=== PATIENT | female | born 1970 | race Caucasian/White ===

== ENCOUNTER 2018-03-29 07:27 | Day surgery (SDC) | payer OTHER ==
--- OUTSIDE RECORDS SUMMARY | 2018-03-29 07:30 | XMS REPORT ---
:1970 Author Organization eClinicalWorks Care Team Providers Name Role Phone Rickey Lim Provider Role Unavailable Allergies, Adverse Reactions, Alerts Substance Reaction Event Type N.K.D.A. 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 left elbow due to overuse Problem Seasonal allergies J30.2 Active Problem GERD without esophagitis K21.9 Active Problem Vitamin D deficiency E55.9 Active Problem Elevated blood pressure reading R03.0 Active without diagnosis of hypertension Problem Low back pain, unspecified back M54.5 Active pain laterality, unspecified chronicity, with sciatica presence unspecified Problem Hyperlipidemia, unspecified E78.5 Active hyperlipidemia type Problem Hypothyroidism, unspecified type E03.9 Active Medications Medication Code Code Instructions Start End Status Dosage System Date Date Levothyroxine [facility] 89405526698 75 MCG Orally Active 1 tablet Sodium Once a day on an empty stomach in the morning Flonase [facility] 05810974074 50 MCG/ACT Active 1 spray in Nasally Once a each day nostril Vitamin D3 [facility] 85792911049 34257 UNIT Active 1 capsule Orally Breo Ellipta ND 78633312240 100-25 MCG/INH Active 1 puff Inhalation Once a day Valtrex [facility] 29379438053 500 MG Orally Active 1 tablet Once a day Claritin-D 12 ND 89551309387 5-120 MG Orally Active 1 tablet Hour every 12 hrs as needed Protonix ND 76064735717 40 MG Orally Active 1 tablet Once a day Results No Known Results Summary Purpose eClinicalWorks Submission
--- OUTSIDE RECORDS SUMMARY | 2018-03-29 07:30 | XMS REPORT ---
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 Active left elbow due to overuse Assessment Lateral epicondylitis of left elbow M77.12 Active Assessment Acute pain of left knee M25.562 Active Problem Seasonal allergies J30.2 Active Problem GERD [...] Start End Status Dosage System Date Date Breo Ellipta [facility] 11646244382 100-25 MCG/INH Active 1 puff Inhalation Once a day Flonase ND 60612344009 50 MCG/ACT Active 1 spray in Nasally Once a each day nostril Diclofenac Sodium ND 84740085135 50 MG Orally December 14, Dec 29, Active 1 tablet Twice a day 2017 2017 with food or milk Protonix ND 68104354028 40 MG Orally Active 1 tablet Once a day Valtrex ND 95305749391 500 MG Orally Active 1 tablet Once a day Claritin-D 12 ND 74496842704 5-120 MG Orally Active 1 tablet Hour every 12 hrs as needed Levothyroxine ND 71390149617 75 MCG Orally Active 1 tablet Sodium Once a day on an empty stomach in the morning Fluoxetine HCl ND 76974684761 20 MG Orally Active 1 capsule Once a day in the morning Vitamin D3 ND 98835836501 81800 UNIT Active 1 capsule Orally Results No Known Results Summary Purpose eClinicalWorks Submission
[2018-03-29] MEDS ORDERED: Ringers Lactate 1,000 ML IV ONE (07:49)
[2018-03-29] MEDS ORDERED: LIDOCAINE 1% MPF 5 ML VIAL ONE (09:26)
[2018-03-29] MEDS ORDERED: PROPOFOL 200 MG/20 ML VIAL IV ONE ×2 (09:26→10:23)
[2018-03-29] MEDS ORDERED: MIDAZOLAM HCL 2 MG/2 ML INJ ONE (09:27)
--- NOTE | 2018-03-29 09:50 | ENDO RPT ---
[address], [address] EGD PROCEDURE REPORT EXAM DATE: 03/29/2018 PATIENT NAME: Velvet Yoo MR#: [id number] BIRTHDATE: 1970 ATTENDING: Guru Molina Dr STATUS: outpatient [employer] LEAK TESTER: Tia Fitch and Loretta Connolly RN INDICATIONS: The patient is a 47 yr old Female here for an EGD due to right upper quadrant abdominal pain, mid epigastric abdominal pain, and chronic unexplained diarrhea PROCEDURE PERFORMED: EGD with biopsy MEDICATIONS: Per Anesthesia. TOPICAL ANESTHETIC: none CONSENT: The patient understands the risks and benefits of the procedure and understands that these risks include, but are not limited to: sedation, allergic reaction, infection, perforation and/or bleeding. Alternative means of evaluation and treatment include, among others: physical exam, x-rays, and/or surgical intervention. The patient elects to proceed with this endoscopic procedure. DESCRIPTION OF PROCEDURE: During intra-op preparation period all mechanical medical equipment was checked for proper function. Hand hygiene and appropriate measures for infection prevention was taken. Procedure, possible complications, and alternatives including but not limited to the possibility of bleeding, perforation, tear, infection, sepsis, need for surgery, need for blood transfusion, and anesthesia related complications were explained to the patient. After the risks, benefits and alternatives of the procedure were thoroughly explained, Informed consent was verified, confirmed and timeout was successfully executed by the treatment team. The patient was placed in the left lateral position. The patient was anesthetized with topical anesthesia. Through the anesthetized oropharyngeal area, the scope was passed without any difficulty. The Pentax EG-[id number] ([id number]) endoscope was introduced through the mouth and advanced to the third portion of the duodenum. Retroflexed views revealed a small hiatal hernia. The gastroscope was then slowly withdrawn and removed. LA Class A esophagitis was found in the lower esophagus. A small hiatal hernia was found Duodenitis was found in the bulb of the duodenum. Multiple gastric biopsies were obtained and sent to pathology. Small bowel biopsies obtained with history of chronic unexplained diarrhea. ADVERSE EVENTS: There were no complications. IMPRESSIONS: 1. LA Class A esophagitis in the lower esophagus 2. A small hiatal hernia 3. Duodenitis in the bulb of the duodenum, s/p gastric biopsies 4. Small bowel biopsies obtained with history of chronic unexplained diarrhea RECOMMENDATIONS: 1. await biopsy results 2. acid suppression therapy REPEAT EXAM: Guru Molina Dr eSigned: Guru Molina Dr 03/29/2018 9:50 AM cc: Rickey Lim M.D. CPT CODES: ICD9 CODES: PATIENT NAME: Velvet Yoo MR#: [id number]
--- NOTE | 2018-03-29 10:24 | ENDO RPT ---
[address], [address] COLONOSCOPY PROCEDURE REPORT EXAM DATE: 03/29/2018 PATIENT NAME: Velvet Yoo MR #: [id number] BIRTHDATE: 1970 ATTENDING: Guru Molina Dr STATUS: outpatient AUTOMAT WATCHER: Tia Fitch and Loretta Connolly RN INDICATIONS: The patient is a 47 yr old Female here for a colonoscopy due to RLQ/LLQ abdominal pain, change in bowel habits, unexplained diarrhea, diverticulitis, abnormal CT of abdomen, and family history of colon cancer - mother PROCEDURE PERFORMED: Colonoscopy with biopsy and Colonoscopy with biopsy - cold polypectomy MEDICATIONS: Per Anesthesia. ESTIMATED BLOOD LOSS: None CONSENT: The patient understands the risks and benefits of the procedure and understands that these risks include, but are not limited to: sedation, allergic reaction, infection, perforation and/or bleeding. Alternative means of evaluation and treatment include, among others: physical exam, x-rays, and/or surgical intervention. The patient elects to proceed with this endoscopic procedure. DESCRIPTION OF PROCEDURE: During intra-op preparation period all mechanical medical equipment was checked for proper function. Hand hygiene and appropriate measures for infection prevention was taken. Procedure, possible complications, alternatives including, but not limited to possibility of bleeding, perforation, tear, infection, sepsis, need for surgery, need for blood transfusion, were explained to the patient. After the risks, benefits and alternatives of the procedure were thoroughly explained, Informed consent was verified, confirmed and timeout was successfully executed by the treatment team. The patient was placed in the left lateral position. A digital rectal exam was performed and revealed no abnormalities of the rectum. After appropriate level of anesthesia, the scope was passed. The EG-2990i ([id number]) and EC-3890Li ([id number]) endoscope was introduced through the anus and advanced to the terminal ileum which was intubated for a short distance. The quality of the prep was good. The instrument was then slowly withdrawn as the colon was fully examined. Scope withdrawal time was 9 minutes. COLON FINDINGS: A sessile polyp measuring 3 mm in size was found in the ascending colon. A polypectomy was performed with cold forceps. Mild diverticulosis was noted in the sigmoid colon. Small internal hemorrhoids were found. Retroflexed views revealed small hemorrhoids. Random biopsies of the terminal ileum / right colon / left colon / rectum obtained with history of chronic unexploained diarrhea. The scope was then completely withdrawn from the patient and the procedure terminated. ADVERSE EVENTS: There were no complications. IMPRESSIONS: 1. 3 mm sessile polyp in the ascending colon; polypectomy was performed with cold forceps 2. Mild diverticulosis in the sigmoid colon 3. Small internal hemorrhoids 4. Random biopsies of the terminal ileum / right colon / left colon / rectum obtained with history of chronic unexploained diarrhea 5. Intubation to terminal ileum 6. Family history of colon cancer - mother RECOMMENDATIONS: 1. await biopsy results 2. avoid NSAIDS for 2 weeks RECALL: Return in 3 year(s) for Colonoscopy. Guru Molina Dr eSigned: Guru Molina Dr 03/29/2018 10:23 AM cc: Rickey Lim CPT CODES: ICD9 CODES: 211.3 Benign neoplasm of colon PATIENT NAME: Velvet Yoo MR#: [id number]
== END 2018-03-29 10:51 | disposition home or self-care (01) ==
LOC: OR 07:27 → ENDO 10:51
PROVIDERS: ATTEND Internal Medicine Gastroenterology
PROC: 0DBF8ZX Excision of Right Large Intestine, Via Natural or Artificial Opening Endoscopic, Diagnostic (ICD-10-PCS; 2018-03-29)
PROC: 0DBG8ZX Excision of Left Large Intestine, Via Natural or Artificial Opening Endoscopic, Diagnostic (ICD-10-PCS; 2018-03-29)
PROC: 0DB68ZX Excision of Stomach, Via Natural or Artificial Opening Endoscopic, Diagnostic (ICD-10-PCS; 2018-03-29)
PROC: 0DB88ZX Excision of Small Intestine, Via Natural or Artificial Opening Endoscopic, Diagnostic (ICD-10-PCS; 2018-03-29)
PROC: 0DBB8ZX Excision of Ileum, Via Natural or Artificial Opening Endoscopic, Diagnostic (ICD-10-PCS; principal; 2018-03-29 09:15)
PROC: 0DBP8ZX Excision of Rectum, Via Natural or Artificial Opening Endoscopic, Diagnostic (ICD-10-PCS; 2018-03-29 09:15)
DX: K29.50 Unspecified chronic gastritis without bleeding (principal); K63.5 Polyp of colon; K57.30 Diverticulosis of large intestine without perforation or abscess without bleeding; K29.80 Duodenitis without bleeding; K20.8 Other esophagitis; K44.9 Diaphragmatic hernia without obstruction or gangrene; K64.8 Other hemorrhoids; E03.9 Hypothyroidism, unspecified; M81.0 Age-related osteoporosis without current pathological fracture; Z87.891 Personal history of nicotine dependence; Z80.0 Family history of malignant neoplasm of digestive organs; Z80.3 Family history of malignant neoplasm of breast; Z80.1 Family history of malignant neoplasm of trachea, bronchus and lung
CPT/HCPCS: 81025; 88305; 88312; J2250; J2704

== ENCOUNTER 2021-02-26 08:16 | Emergency (ER) | payer OTHER ==
[2021-02-26 09:05] LABS: Absolute Lymphocytes (CBC) 3.6 K/uL (0.7-4.9); Basophils % 0.9 % (0-1.3); Hematocrit 38.2 % (36.0-45.0); Lymphocytes % 46.3 % (15.3-44.8); MPV 7.8 fL (7.6-11.3); RBC Red Blood Cell Count 4.31 M/uL (3.86-4.86)
[2021-02-26 09:06] LABS: Protime INR 0.97
[2021-02-26 09:18] LABS: ALT/SGPT 41 U/L (12-78); AST/SGOT 18 U/L (15-37); Albumin 3.9 g/dL (3.4-5.0); Alkaline Phosphatase 90 U/L (45-117); BUN Blood Urea Nitrogen 14 mg/dL (7-18); Bicarbonate 28 mmol/L (21-32); Bilirubin Direct 0.1 mg/dL (0-0.2); Bilirubin Total 0.5 mg/dL (0.2-1.0); Glucose Level 106 mg/dL (74-106); Magnesium 2.4 mg/dL (1.8-2.4); NT PRO-BNP 23 pg/mL (<125); Potassium 3.8 mmol/L (3.5-5.1); Protein, Total 7.8 g/dL (6.4-8.2); Sodium Level 140 mmol/L (136-145); Troponin (Emerg Dept Use Only) < 0.02 ng/mL (0.0-0.045)
--- NOTE | 2021-02-26 09:31 | RAD REPORT ---
EXAM DESCRIPTION: RAD - Chest Single View - 02/26/2021 9:24 am CLINICAL HISTORY: PALPITATIONS COMPARISON: CHEST SINGLE VIEW dated 10/29/2014; CHEST PA AND LAT 2 VIEW dated 10/23/2014; CHEST SINGLE VIEW dated 09/18/2010 FINDINGS: Lines: None. Lungs: No evidence of edema or pneumonia. Scattered calcified pulmonary nodules. Pleural: No significant pleural effusions or pneumothorax. Cardiac: The heart size is within normal limits. Bones: No acute fractures. Other: IMPRESSION: No acute cardiopulmonary disease.
[2021-02-26 09:36] LABS: Thyroid Stimulating Hormone 6.03 uIU/mL (0.360-3.740)
--- NOTE | 2021-02-26 10:12 | EDPHYS ---
Physician Documentation [facility] Name: Velvet Yoo Age: 50 yrs Sex: Female : 1970 Arrival Date: 02/26/2021 Time: 08:21 Bed 6 Private MD: ED Physician Celso Wheeler HPI: 02/26 08:42 This 50 yrs old Female presents to ER via Ambulatory with complaints of jr8 Palpitations. 08:42 The patient presents with a history of heart racing. Context: The symptoms occur at jr8 rest. Onset: The symptoms/episode began/occurred gradually. Duration: The patient or guardian reports multiple episodes. Modifying factors: The symptoms are aggravated by anxiety, strenuous activity, stress. Associated signs and symptoms: Pertinent positives: lightheadedness, SOB. Severity of symptoms: At their worst the symptoms were moderate in the emergency department the symptoms are unchanged. The patient has not experienced similar symptoms in the past. The patient has been recently seen by a physician:. Patient stated that she has been recently monitoring her blood pressure has been mildly elevated over the last couple months. Has seen her primary care physician for this and started her on a diet modification along with phentermine. Patient stated that over the last day or 2 she has had worsening of symptoms.. Historical: - Allergies: 08:32 No Known Allergies; aa5 - Home Meds: 08:32 Omeprazole Oral [Active]; Fluoxetine Oral [Active]; aa5 - PMHx: 08:32 GERD; aa5 - Immunization history:: Client reports receiving the 2nd dose of the Covid vaccine. - Social history:: Smoking status: Patient denies any tobacco usage or history of. ROS: 08:42 Eyes: Negative for injury, pain, redness, and discharge, ENT: Negative for injury, jr8 pain, and discharge, Neck: Negative for injury, pain, and swelling, Abdomen/GI: Negative for abdominal pain, nausea, vomiting, diarrhea, and constipation, Back: Negative for injury and pain, MS/Extremity: Negative for injury and deformity, Skin: Negative for injury, rash, and discoloration. 08:42 Cardiovascular: Positive for chest pain, palpitations, Negative for edema, orthopnea, paroxysmal nocturnal dyspnea. 08:42 Respiratory: Positive for shortness of breath. 08:42 Neuro: Positive for dizziness. Exam: 08:42 Eyes: Pupils equal round and reactive to light, extra-ocular motions intact. Lids and jr8 lashes normal. Conjunctiva and sclera are non-icteric and not injected. Cornea within normal limits. Periorbital areas with no swelling, redness, or edema. ENT: Nares patent. No nasal discharge, no septal abnormalities noted. Tympanic membranes are normal and external auditory canals are clear. Oropharynx with no redness, swelling, or masses, exudates, or evidence of obstruction, uvula midline. Mucous membranes moist. Neck: Trachea midline, no thyromegaly or masses palpated, and no cervical lymphadenopathy. Supple, full range of motion without nuchal rigidity, or vertebral point tenderness. No Meningismus. Cardiovascular: Regular rate and rhythm with a normal S1 and S2. No gallops, murmurs, or rubs. Normal PMI, no JVD. No pulse deficits. Respiratory: Lungs have equal breath sounds bilaterally, clear to auscultation and percussion. No rales, rhonchi or wheezes noted. No increased work of breathing, no retractions or nasal flaring. Abdomen/GI: Soft, non-tender, with normal bowel sounds. No distension or tympany. No guarding or rebound. No evidence of tenderness throughout. Back: No spinal tenderness. No costovertebral tenderness. Full range of motion. Skin: Warm, dry with normal turgor. Normal color with no rashes, no lesions, and no evidence of cellulitis. MS/ Extremity: Pulses equal, no cyanosis. Neurovascular intact. Full, normal range of motion. Neuro: Awake and alert, GCS 15, oriented to person, place, time, and situation. Cranial nerves II-XII grossly intact. Motor strength 5/5 in all extremities. Sensory grossly intact. Vital Signs: 08:25 BP 184 / 111; Pulse 78; Resp 20 S; Temp 97.4(O); Pulse Ox 99% on R/A; Weight 95.25 kg aa5 (R); Height 5 ft. 6 in. (167.64 cm) (R); Pain 0/10; 08:45 BP 160 / 101; Pulse 72; Resp 18 S; Pulse Ox 98% on R/A; aa5 09:30 BP 151 / 91; Pulse 75; Resp 16 S; Pulse Ox 99% on R/A; aa5 08:25 Body Mass Index 33.89 (95.25 kg, 167.64 cm) 5 MDM: 08:23 Patient medically screened. jr8 10:07 Data reviewed: vital signs, nurses notes, lab test result(s), EKG, radiologic studies, jr8 plain films, and as a result, I will discharge patient. Data interpreted: Pulse oximetry: on room air is 99 %. Interpretation: normal. Counseling: I had a detailed discussion with the patient and/or guardian regarding: the historical points, exam findings, and any diagnostic results supporting the discharge/admit diagnosis, lab results, radiology results, the need for outpatient follow up, a service station manager, to return to the emergency department if symptoms worsen or persist or if there are any questions or concerns that arise at home. 10:52 ED course: Detailed discussion with patient about her thyroid studies. Would recommend jr8 redraw in a few weeks and if the TSH is still elevated that she should be started on low-dose Synthroid. Discussed her blood pressure management at this point and that would be a good idea to start her on something low dose. Because she is having symptomatic PVCs recommended a beta-yolanda at this time. Patient will also follow-up with Dr. Arcos in the next couple days. Patient knows to come back if she were to worsen any point time. Otherwise labs, EKG, chest x-ray were unrevealing.. 02/26 08:34 Order name: Basic Metabolic Panel; Complete Time: 09:25 02/26 08:34 Order name: CBC with Diff; Complete Time: 09:25 02/26 08:34 Order name: LFT's; Complete Time: 09:25 02/26 08:34 Order name: Magnesium; Complete Time: 09:25 02/26 08:34 Order name: NT PRO-BNP; Complete Time: 09:25 02/26 08:34 Order name: PT-INR; Complete Time: 09:25 02/26 08:34 Order name: Troponin (emerg Dept Use Only); Complete Time: 09:25 aa02/26 08:34 Order name: XRAY Chest (1 view); Complete Time: 09:37 02/26 08:34 Order name: EKG; Complete Time: 08:35 aa02/26 08:34 Order name: Cardiac monitoring; Complete Time: 08:34 aa5 02/26 08:34 Order name: EKG - Nurse/Tech; Complete Time: 08:34 02/26 08:34 Order name: IV Saline Lock; Complete Time: 09:03 02/26 08:41 Order name: TSH; Complete Time: 09:37 8 02/26 08:41 Order name: T4 Free; Complete Time: 09:37 8 02/26 08:34 Order name: Labs collected and sent; Complete Time: 09:03 02/26 08:34 Order name: O2 Per Protocol; Complete Time: 08:34 02/26 08:34 Order name: O2 Sat Monitoring; Complete Time: 08:34 aa Administered Medications: No medications were administered Disposition: 11:05 Co-signature as Attending Physician, Celso Wheeler MD I agree with the assessment and rn plan of care. Attestation: The patient's history, exam findings, diagnostics, and a summary of any interventions or procedures was reviewed in detail with Andrews BOWER. Disposition Summary: 02/26/21 10:11 Discharge Ordered Location: Home [facility] Problem: new jr8 Symptoms: have improved jr8 Condition: Stable jr8 Diagnosis - Essential (primary) hypertension jr8 - Ventricular premature depolarization jr8 Followup: jr8 - With: Nathan Arcos MD - When: 2 - 3 days - Reason: Recheck today's complaints, Continuance of care, Re-evaluation by your physician Discharge Instructions: - Discharge Summary Sheet jr8 - Hypertension, Adult jr8 - Premature Ventricular Contraction jr8 - DASH Eating Plan jr8 Forms: - Medication Reconciliation Form jr8 - Thank You Letter jr8 - Antibiotic Education jr8 - Prescription Opioid Use jr8 Prescriptions: - Metoprolol Tartrate 25 mg Oral Tablet - take 1 tablet by ORAL route once daily with a meal; 30 tablet; Refills: 0, jr8 Product Selection Permitted Signatures: Dispatcher [employer] Celso Paris MD MD rn Calderon, Audri RN RN aa5 Andrews Ho PA PA jr8
--- NOTE | 2021-02-26 10:12 | ER ---
Nurse's Notes [facility] Name: Velvet Yoo Age: 50 yrs Sex: Female : 1970 Arrival Date: 02/26/2021 Time: 08:21 Bed 6 Private MD: Diagnosis: Essential (primary) hypertension;Ventricular premature depolarization Presentation: 02/26 08:25 Chief complaint: Patient states: "my heart has been racing for about 36 hours and I've aa5 been seeing Dr. Zuniga keeping a blood pressure log". Pt states "I came in today because my heart and my chest are pounding and it woke me up". Pt also reports slight dizziness. 08:25 Coronavirus screen: At this time, the client does not indicate any symptoms associated aa5 with coronavirus-19. Ebola Screen: Patient negative for fever greater than or equal to 101.5 degrees Fahrenheit, and additional compatible Ebola Virus Disease symptoms. Initial Sepsis Screen: Does the patient meet any 2 criteria? No. Patient's initial sepsis screen is negative. Does the patient have a suspected source of infection? No. Patient's initial sepsis screen is negative. Risk Assessment: Do you want to hurt yourself or someone else? Patient reports no desire to harm self or others. Onset of symptoms was January 2021. 08:25 Method Of Arrival: Ambulatory aa5 08:25 Acuity: ARGELIA 2 aa5 Historical: - Allergies: 08:32 No Known Allergies; aa5 - Home Meds: 08:32 Omeprazole Oral [Active]; Fluoxetine Oral [Active]; aa5 - PMHx: 08:32 GERD; aa5 - Immunization history:: Client reports receiving the 2nd dose of the Covid vaccine. - Social history:: Smoking status: Patient denies any tobacco usage or history of. Screenin:45 Abuse screen: Denies threats or abuse. Nutritional screening: No deficits noted. aa5 Tuberculosis screening: No symptoms or risk factors identified. Fall Risk None identified. Assessment: 08:25 General: Appears uncomfortable, Behavior is cooperative, anxious. Pain: Denies pain. aa5 Neuro: Level of Consciousness is awake, alert, obeys commands, Oriented to person, place, time, situation, Reports slight dizziness . Cardiovascular: Reports palpitations, Heart tones S1 S2 present Rhythm is sinus rhythm. Respiratory: Airway is patent Respiratory effort is even, unlabored, Respiratory pattern is regular, symmetrical. GI: No signs and/or symptoms were reported involving the gastrointestinal system. Abdomen is round non-distended. : No signs and/or symptoms were reported regarding the genitourinary system. EENT: No signs and/or symptoms were reported regarding the EENT system. Derm: Skin is pink, warm \\T\\ dry. Musculoskeletal: Range of motion: intact in all extremities. 08:46 Reassessment: Patient is alert, oriented x 3, equal unlabored respirations, skin aa5 warm/dry/pink. Pt assisted to restroom via wheelchair. Pt placed back in bed. Call montilla within reach. . 09:35 Reassessment: Patient is alert, oriented x 3, equal unlabored respirations, skin aa5 warm/dry/pink. Awaiting complete lab results. . 09:35 General: Appears comfortable, Behavior is calm, cooperative. aa5 10:17 Reassessment: Patient is alert, oriented x 3, equal unlabored respirations, skin aa5 warm/dry/pink. 10:17 General: Appears comfortable, Behavior is calm, cooperative. aa5 Vital Signs: 08:25 BP 184 / 111; Pulse 78; Resp 20 S; Temp 97.4(O); Pulse Ox 99% on R/A; Weight 95.25 kg aa5 (R); Height 5 ft. 6 in. (167.64 cm) (R); Pain 0/10; 08:45 BP 160 / 101; Pulse 72; Resp 18 S; Pulse Ox 98% on R/A; aa5 09:30 BP 151 / 91; Pulse 75; Resp 16 S; Pulse Ox 99% on R/A; aa5 08:25 Body Mass Index 33.89 (95.25 kg, 167.64 cm) aa5 ED Course: 08:21 Patient arrived in ED. am2 08:23 Andrews Ho PA is PHCP. jr8 08:23 Celso Wheeler MD is Attending Physician. jr8 08:25 Siena Katz, AJ is Primary Nurse. aa5 08:25 Arm band placed on Patient placed in an exam room, on a stretcher. aa5 08:25 Patient has correct armband on for positive identification. Bed in low position. Call aa5 light in reach. Side rails up X 1. media monitor on. Pulse ox on. NIBP on. 08:32 Triage completed. aa5 08:43 Initial lab(s) drawn, by me, sent to lab. Inserted saline lock: 20 gauge in left aa5 antecubital area, using aseptic technique. Blood collected. 09:24 XRAY Chest (1 view) In Process Unspecified. EDMA 10:10 Nathan Arcos MD is Referral Physician. jr 10:17 No provider procedures requiring assistance completed. IV discontinued, intact, aa5 bleeding controlled, No redness/swelling at site. Pressure dressing applied. Administered Medications: No medications were administered Outcome: 10:11 Discharge ordered by . jr8 10:18 Discharged to home ambulatory. aa5 10:18 Condition: stable 10:18 Discharge instructions given to patient, Instructed on discharge instructions, follow up and referral plans. medication usage, Demonstrated understanding of instructions, follow-up care, medications, Prescriptions given X 1. 10:20 Patient left the ED. aa5 Signatures: Dispatcher [employer] [facility] Siena Katz RN RN aa5 Andrews Ho PA PA jr8 Zulay Day am2 Corrections: (The following items were deleted from the chart) 10:40 10:40 Patient left the ED. aa5 [email or web address]
[2021-02-26 10:46] VITALS: TEMP 97.4
[2021-02-26 10:49] VITALS: BP 151/91; O2SAT 99
--- NOTE | 2021-02-27 11:15 | EKG ---
Test Date: 2021-02-26 Test Time: 08:29:45 Tool Design Engineer: HOMA MEASUREMENT RESULTS: Intervals: Rate: 77 AL: 138 QRSD: 86 QT: 368 QTc: 416 [place]: P: 8 AL: 138 QRS: 5 T: 38 INTERPRETIVE STATEMENTS: Normal sinus rhythm Normal ECG Compared to ECG 10/29/2014 19:00:22 No significant changes Electronically Signed On 02-27-21 11:13:17 CDT by Nathan Arcos
== END 2021-02-26 10:40 | disposition home or self-care (01) ==
LOC: ER 08:16
DX: I10 Essential (primary) hypertension (principal); I49.3 Ventricular premature depolarization; K21.9 Gastro-esophageal reflux disease without esophagitis
CPT/HCPCS: 36415; 71045; 80048; 80076; 83735; 83880; 84439; 84443; 84484; 85025; 85610; 93005; 99284

== ENCOUNTER 2023-11-08 14:01 | Emergency (ER) | payer BC ==
--- OUTSIDE RECORDS SUMMARY | 2023-11-08 14:05 | XMS REPORT | Continuity of Care Document ---
Author Name Unknown Address [address] [facility] [place] [address] [facility] thconnect Address [address] [facility] [address] [place] [address] Care Team Providers Care Child Custody Evaluator Name Role Phone [email or web address] Attending Clinician Unavaila ble Guru Molina Admitting Clinician Unavailable [email or web address]_S Admitting Clinician Unavaila ble Payers Payer Name Policy Type Policy Number Effective Date Expirati on Date Source [facility] 6 [id number] [facility]: (PPO) [id number] 2022 00:00:00 [employer] [facility] 6 [id number] [facility] AETNA C1 [id number] [facility] Problems Condition Name Condition Details Condition Category Status Onset Date Resolution Date Last Treatment Date Treating Clinician Comments Source Herpes simplex Herpes Simplex Problem Active 8 00:00: 00 [facility] Hypothyroi dism Hypothyroi dism Problem Active 8 00:00: 00 [facility] Hyperlipid emia Hyperlipid emia Problem Active 01-19 00:00: 00 [facility] Anxiety Anxiety Problem Active 01-19 00:00: 00 [facility] Essential hypertensi on Essential Hypertensi on Problem Active 01-19 00:00: 00 [facility] Gastroesop hageal reflux disease Gastroesop hageal Reflux Disease Problem Active 01-19 00:00: 00 [facility] Postmenopa usal bleeding Postmenopa usal Bleeding Problem Active 09-16 00:00: 00 [facility] Body mass index 30+ - obesity Body Mass Index 30+ - Obesity Problem Active 408 00:00: 00 [facility] Screening for malignant neoplasm of colon Screening for Malignant Neoplasm of Colon Problem Active 08 00:00: 00 [facility] Fibrocysti c change of right breast Fibrocysti c Change of Right Breast Problem Active 2020-05 2-28 00:00: 00 [facility] Lump in upper inner quadrant of right breast Lump in Upper Inner Quadrant of Right Breast Problem Active 2020-05 2-20 00:00: 00 [facility] Pure hyperchole sterolemia Pure Hyperchole sterolemia Problem Active 2020-05 1-03 00:00: 00 [facility] Severe obesity Severe Obesity Problem Active 2020-05 1-03 00:00: 00 [facility] Inconclusi ve mammograph y finding Inconclusi ve Mammograph y Finding Problem Active 816 00:00: 00 [facility] Abnormal findings on diagnostic imaging of breast Abnormal Findings on Diagnostic Imaging of Breast Problem Active 16 00:00: 00 [facility] Moderate recurrent major depression Moderate Recurrent Major Depression Problem Active 4-07 00:00: 00 [facility] Mixed urinary incontinen ce Mixed Urinary Incontinen ce Problem Active 4- 00:00: 00 [facility] Screening mammograph y Screening Mammograph y Problem Active 4 00:00: 00 [facility] Herpetic vulvovagin itis Herpetic Vulvovagin itis Problem Active 3 00:00: 00 [facility] Chlamydial infection of lower genitourin [place] tract Chlamydial Infection of Lower Genitourin [place] Tract Problem Active 3 00:00: 00 [facility] Venereal disease screening Venereal Disease Screening Problem Active 3 00:00: 00 [facility] Irregular periods Irregular Periods Problem Active 309 00:00: 00 [facility] Mild major depression , single episode Mild Major Depression , Single Episode Problem Active 0 806 00:00: 00 [facility] Removal of intrauteri ne device Removal of Intrauteri ne Device Problem Active 0 806 00:00: 00 [facility] Abscess of vulva Abscess of Vulva Problem Active 0 12-15 00:00: 00 [facility] Menopause present Menopause Present Problem Active 0 12-15 00:00: 00 [facility] Contracept ion care education Contracept ion Care Education Problem Active 302 00:00: 00 [facility] Candidiasi s of vagina Candidiasi s of Vagina Problem Active 0 02-10 00:00: 00 [facility] Major depression , single episode Major Depression , Single Episode Problem Active 0 02-10 00:00: 00 [facility] Alcohol abuse Alcohol Abuse Problem Active 02-10 00:00: 00 [facility] Acute vaginitis Acute Vaginitis Problem Active 02-10 00:00: 00 [facility] Pruritus of vulva Pruritus of Vulva Problem Active 0 02-10 00:00: 00 [facility] Counseling Counseling Problem Active 02-10 00:00: 00 [facility] Gynecologi c examinatio n Gynecologi c Examinatio n Problem Active 0 07-22 00:00: 00 [facility] Herpesviru s infection Herpesviru s Infection Problem Active 07-22 00:00: 00 [facility] Postcoital bleeding Postcoital Bleeding Problem Active 07-22 00:00: 00 [facility] Gynecologi david examinatio n abnormal Gynecologi david Examinatio n Abnormal Problem Active 07-22 00:00: 00 [facility] [id number] Primary osteoarthr itis of left knee Problem [facility] [id number] Elevated blood pressure reading without diagnosis of hypertensi on Problem [facility] [id number] Osteopenia of multiple sites Problem [facility] [id number] GERD without esophagiti s Problem [facility] [id number] Seasonal allergies Problem [facility] [id number] Urge incontinen ce of urine Problem [facility] [id number] Vitamin D deficiency Problem [facility] [id number] Right carpal tunnel syndrome Problem [facility] [id number] Neuropathy of right radial nerve Problem [facility] [id number] SI joint arthritis Problem [facility] [id number] Pain, joint, knee, left Problem [facility] [id number] Right hand pain Problem [facility] [id number] 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 Problem [facility] [id number] Stress incontinen ce Problem [facility] [id number] Low back pain, unspecifie d back pain laterality , unspecifie d chronicity , with sciatica presence unspecifie d Problem [facility] [id number] Other chronic pain Problem [facility] [id number] Trochanter ic bursitis, left hip Problem [facility] [id number] Pain of left hip joint Problem [facility] [id number] Arthritis of knee, left Problem [facility] Social History Social Habit Start Date Stop Date Quantity Comments Source History of Tobacco Use [facility] Sex Assigned At [facility] Smoking Status Start Date Stop Date Source Never Smoker [facility] Former Smoker 2023-10-24 00:00:00 2023-10-24 00:00:00 [facility] Medications Ordered Medication Name Filled Medication Name Start Date Stop Date Current Medication? Ordering Clinician Indication Dosage Frequency Signature (SIG) Comments Components Source BUPivacaine HCl BUPivacaine HCl 10-09 00:00: [address] [facility] Hyalgan Hyalgan 10-04 00:00: [address] [facility] Bupivicaine [place] Bupivicaine [place] 02-22 00:00: [address] [facility] Kenalog (Triamcinol one) Kenalog (Triamcinol one) 11-09 00:00: [address] [facility] Omeprazole 40 MG Omeprazole 40 MG No QD Omeprazole 40 MG valACYclovi r HCl 500 MG valACYclovi r HCl 500 MG No 1{table t} QD valACYclov ir HCl 500 MG Famotidine 20 MG Famotidine 20 MG No 1{table t_at_be dtime_a s_neede d} QD Famotidine 20 MG [place] Thyroid 90 MG [place] Thyroid 90 MG No 1{table t_on_an _empty_ stomach } QD [place] Thyroid 90 MG Probiotic 250 MG Probiotic 250 MG No Probiotic 250 MG Spironolact one 100 MG Spironolact one 100 MG No 1{table t} QD Spironolac tone 100 MG [place] Thyroid 90 mg tablet [place] Thyroid 90 mg tablet No [place] Thyroid 90 mg tablet [facility] famotidine 20 mg tablet famotidine 20 mg tablet No famotidine 20 mg tablet [facility] omeprazole 40 mg capsule,del ayed release omeprazole 40 mg capsule,del ayed release No omeprazole 40 mg capsule,de layed release [facility] progesteron e micronized 200 mg capsule Take 1 capsule every day by oral route for 90 days. progesteron e micronized 200 mg capsule Take 1 capsule every day by oral route for 90 days. No 1capsul e(s) Q1D progestero ne micronized 200 mg capsule Take 1 capsule every day by oral route for 90 days. [facility] spironolact one 50 mg tablet TAKE ONE (1) OR TWO (2) TABLET(S) BY MOUTH EVERY NIGHT. spironolact one 50 mg tablet TAKE ONE (1) OR TWO (2) TABLET(S) BY MOUTH EVERY NIGHT. No spironolac tone 50 mg tablet TAKE ONE (1) OR TWO (2) TABLET(S) BY MOUTH EVERY NIGHT. [facility] tirzepatide 15mg/b6 4mg/0.5ml mdv (6ml 180mg) INJECT 50 UNITS (15 MG) subcutaneou s ONCE WEEKLY FOR 90 DAYS tirzepatide 15mg/b6 4mg/0.5ml mdv (6ml 180mg) INJECT 50 UNITS (15 MG) subcutaneou s ONCE WEEKLY FOR 90 DAYS No tirzepatid e 15mg/b6 4mg/0.5ml mdv (6ml 180mg) INJECT 50 UNITS (15 MG) subcutaneo us ONCE WEEKLY FOR 90 DAYS [facility] valacyclovi r 500 mg tablet TAKE 1 TABLET BY MOUTH ONCE DAILY valacyclovi r 500 mg tablet TAKE 1 TABLET BY MOUTH ONCE DAILY No valacyclov ir 500 mg tablet TAKE 1 TABLET BY MOUTH ONCE DAILY [facility] Vital Signs Vital Name Observation Time Observation Value Comments S ource height 2023-10-24 15:30:00 66 [in_i] Commo n [facility] weight 2023-10-24 15:30:00 190 [lb_av] Comm on [facility] temperature 2023-10-24 15:30:00 98.4 [degF] Com mon [facility] bmi 2023-10-24 15:30:00 30.66 kg/m2 Comm on [facility] blood pressure systolic 2023-10-24 15:30:00 136 mm[Hg] Common [facility] blood pressure diastolic 2023-10-24 15:30:00 86 mm[Hg] Common [facility] height 2023-10-17 15:30:00 66 [in_i] Commo n [facility] weight 2023-10-17 15:30:00 190 [lb_av] Comm on [facility] temperature 2023-10-17 15:30:00 98.1 [degF] Com [facility] bmi 2023-10-17 15:30:00 30.66 kg/m2 Comm on [facility] blood pressure systolic 2023-10-17 15:30:00 126 mm[Hg] [facility] blood pressure diastolic 2023-10-17 15:30:00 76 mm[Hg] [facility] height 2023-10-10 15:30:00 66 [in_i] Commo n [facility] weight 2023-10-10 15:30:00 194 [lb_av] Comm on [facility] temperature 2023-10-10 15:30:00 98.3 [degF] Com mon [facility] bmi 2023-10-10 15:30:00 31.31 kg/m2 Comm on [facility] blood pressure systolic 2023-10-10 15:30:00 126 mm[Hg] Common [facility] blood pressure diastolic 2023-10-10 15:30:00 74 mm[Hg] [facility] BP Diastolic 2023-10-03 00:00:00 89 mm[Hg] [facility] Height 2023-10-03 00:00:00 66 [in_i] [facility] Body Weight 2023-10-03 00:00:00 192.8 [lb_av] [facility] BP Systolic 2023-10-03 00:00:00 143 mm[Hg] [facility] BMI (Body Mass Index) 2023-10-03 00:00:00 31.1 kg[facility] 2023-08-08 09:00:00 66 [in_i] Commo n [facility] weight 2023-08-08 09:00:00 203 [lb_av] Comm on [facility] temperature 2023-08-08 09:00:00 98.2 [degF] Com mon [facility] bmi 2023-08-08 09:00:00 32.76 kg/m2 Comm on [facility] blood pressure systolic 2023-08-08 09:00:00 124 mm[Hg] [facility] blood pressure diastolic 2023-08-08 09:00:00 78 mm[Hg] [facility] height 2023-04-25 10:00:00 66 [in_i] Commo n [facility] weight 2023-04-25 10:00:00 203 [lb_av] Comm on [facility] bmi 2023-04-25 10:00:00 32.76 kg/m2 Comm on [facility] blood pressure systolic 2023-04-25 10:00:00 122 mm[Hg] [facility] blood pressure diastolic 2023-04-25 10:00:00 74 mm[Hg] [facility] height 2023-04-06 08:45:00 66 [in_i] Commo n [facility] weight 2023-04-06 08:45:00 203 [lb_av] Comm on [facility] temperature 2023-04-06 08:45:00 98.3 [degF] Com [facility] bmi 2023-04-06 08:45:00 32.76 kg/m2 Comm on [facility] blood pressure systolic 2023-04-06 08:45:00 122 mm[Hg] [facility] blood pressure diastolic 2023-04-06 08:45:00 74 mm[Hg] [facility] height 2022-12-20 08:45:00 66 [in_i] Commo n [facility] weight 2022-12-20 08:45:00 207 [lb_av] Comm on [facility] temperature 2022-12-20 08:45:00 98.4 [degF] Com [facility] bmi 2022-12-20 08:45:00 33.41 kg/m2 Comm on [facility] blood pressure systolic 2022-12-20 08:45:00 124 mm[Hg] [facility] blood pressure diastolic 2022-12-20 08:45:00 71 mm[Hg] [facility] height 2022-12-01 08:15:00 66 [in_i] Commo n [facility] weight 2022-12-01 08:15:00 207 [lb_av] Comm on [facility] temperature 2022-12-01 08:15:00 97.8 [degF] Com [facility] bmi 2022-12-01 08:15:00 33.41 kg/m2 Comm on [facility] blood pressure systolic 2022-12-01 08:15:00 126 mm[Hg] [facility] blood pressure diastolic 2022-12-01 08:15:00 80 mm[Hg] [facility] height 2022-11-21 08:00:00 66 [in_i] Commo n [facility] weight 2022-11-21 08:00:00 207 [lb_av] Comm on [facility] temperature 2022-11-21 08:00:00 98.0 [degF] Com [facility] bmi 2022-11-21 08:00:00 33.41 kg/m2 Comm on [facility] blood pressure systolic 2022-11-21 08:00:00 124 mm[Hg] [facility] blood pressure diastolic 2022-11-21 08:00:00 78 mm[Hg] [facility] height 2022-10-03 15:00:00 66 [in_i] Commo n [facility] weight 2022-10-03 15:00:00 207 [lb_av] Comm on [facility] temperature 2022-10-03 15:00:00 98.2 [degF] Com [facility] bmi 2022-10-03 15:00:00 33.41 kg/m2 Comm on [facility] blood pressure systolic 2022-10-03 15:00:00 136 mm[Hg] [facility] blood pressure diastolic 2022-10-03 15:00:00 84 mm[Hg] [facility] height 2022-03-15 10:15:00 66 [in_i] Commo n [facility] weight 2022-03-15 10:15:00 225 [lb_av] Comm on [facility] temperature 2022-03-15 10:15:00 96.3 [degF] Com [facility] bmi 2022-03-15 10:15:00 36.31 kg/m2 Comm on [facility] blood pressure systolic 2022-03-15 10:15:00 135 mm[Hg] [facility] blood pressure diastolic 2022-03-15 10:15:00 92 mm[Hg] [facility] height 2022-02-15 10:00:00 66 [in_i] Commo n [facility] weight 2022-02-15 10:00:00 225 [lb_av] Comm on [facility] temperature 2022-02-15 10:00:00 97.1 [degF] Com [facility] bmi 2022-02-15 10:00:00 36.31 kg/m2 Comm on [facility] blood pressure systolic 2022-02-15 10:00:00 126 mm[Hg] [facility] blood pressure diastolic 2022-02-15 10:00:00 78 mm[Hg] [facility] height 2021-10-11 15:30:00 66 [in_i] Commo n [facility] weight 2021-10-11 15:30:00 225 [lb_av] Comm on [facility] temperature 2021-10-11 15:30:00 98.0 [degF] Com [facility] bmi 2021-10-11 15:30:00 36.31 kg/m2 Comm on [facility] blood pressure systolic 2021-10-11 15:30:00 118 mm[Hg] [facility] blood pressure diastolic 2021-10-11 15:30:00 78 mm[Hg] [facility] height 2021-10-04 15:30:00 66 [in_i] Commo n [facility] weight 2021-10-04 15:30:00 225 [lb_av] Comm on [facility] temperature 2021-10-04 15:30:00 98.3 [degF] Com [facility] bmi 2021-10-04 15:30:00 36.31 kg/m2 Comm on [facility] blood pressure systolic 2021-10-04 15:30:00 120 mm[Hg] [facility] blood pressure diastolic 2021-10-04 15:30:00 80 mm[Hg] Common [facility] height 2021-09-27 09:15:00 66 [in_i] Commo n [facility] weight 2021-09-27 09:15:00 225 [lb_av] Comm on [facility] temperature 2021-09-27 09:15:00 98.2 [degF] Com [facility] bmi 2021-09-27 09:15:00 36.31 kg/m2 Comm on [facility] blood pressure systolic 2021-09-27 09:15:00 114 mm[Hg] [facility] blood pressure diastolic 2021-09-27 09:15:00 80 mm[Hg] [facility] height 2021-04-13 08:00:00 66 [in_i] Commo n [facility] weight 2021-04-13 08:00:00 214 [lb_av] Comm on [facility] temperature 2021-04-13 08:00:00 97.3 [degF] Com mon [facility] bmi 2021-04-13 08:00:00 34.54 kg/m2 Comm on [facility] blood pressure systolic 2021-04-13 08:00:00 142 mm[Hg] [facility] blood pressure diastolic 2021-04-13 08:00:00 86 mm[Hg] [facility] Procedures Procedure Date / Time Performed Performing Clinicia n Source MAMMO, screening, digital, bilateral 2023-10-03 00:00:00 [facility] Operation on Fingernail [facility] Plan of Care Planned Activity Planned Date Details Comments Source Future Appointment 2024-10-03 08:45:00 Jyoti gaspar, [address] [place] [address] Dr Ornelas; [address] [id number] [facility] Encounters Start Date/Time End Date/Time Encounter Type Admission Type Attending Clinicians Care Facility Care Department Encounter ID Source 2023-10-11 15:59:00 Outpatient [facility] [id number] [facility] 2023-08-07 08:16:00 Outpatient [facility]MLC [facility] [id number] [facility] 2022-10-04 07:59:00 Outpatient STLMLC ST[facility]ML[facility] [id number] [facility] 2022-03-15 10:32:00 Outpatient STLMLC ST[facility]ML[facility] [id number] [facility] 2022-02-15 08:13:00 Outpatient STLMLC STLML[facility] [id number] [facility] 2021-09-24 08:28:00 Outpatient STLMLC STLMLC [id number] [facility] 2021-09-06 13:54:01 Outpatient STLMLC STLMLC [id number] [facility] 2021-06-23 14:18:44 Outpatient STLMLC STLMLC [id number] [facility] 2021-06-23 14:08:29 Outpatient [facility]LMLC STLMLC [id number] [facility] 2021-06-23 12:41:43 Outpatient STLMLC STLMLC [id number] [facility] 2021-06-23 12:32:39 Outpatient STLMLC STLMLC [id number] [facility] 2021-06-23 12:31:55 Outpatient [facility]LMLC STLMLC [id number] [facility] 2021-06-23 12:26:47 Outpatient STLMLC STLMLC [id number] [facility] 2023-10-24 00:00:00 2023-10-24 00:00:00 (IN/ASP) INJ ASP STLMLC STLMLC [id number] [facility] 2023-10-17 00:00:00 2023-10-17 00:00:00 (IN/ASP) INJ ASP STLMLC STLMLC [id number] [facility] 2023-10-10 00:00:00 2023-10-10 00:00:00 OFFICE VISIT ESTAB PT LEVEL [id number] [facility] 2023-10-03 00:00:00 2023-10-03 00:00:00 CHELI Lozada: [address], [address], [place] [address] , Ph. [facility] - GC_GCBZW_Shanda Kramer* [id number] [facility] 2023-10-02 00:00:00 2023-10-02 00:00:00 (TEL) STLMLC STLMLC [id number] [facility] 2023-08-08 00:00:00 2023-08-08 00:00:00 OFFICE VISIT ESTAB PT LEVEL [id number] [facility] 2023-06-19 00:00:00 2023-06-19 00:00:00 Outpatient GC_GCBZW_Ka diyala_S PRIV PRIV [id number] [facility] 2023-05-25 00:00:00 2023-05-25 00:00:00 Outpatient GC_GCBZW_Ka diyala_S PRIV PRIV [id number] [facility] 2023-04-27 00:00:00 2023-04-27 00:00:00 Outpatient GC_GCBZW_Ka diyala_S PRIV PRIV [id number] [facility] 2023-04-27 00:00:00 2023-04-27 00:00:00 Outpatient GC_GCBZW_Ka diyala_S PRIV PRIV [id number] [facility] 2023-04-25 00:00:00 2023-04-25 00:00:00 (IN/ASP) INJ ASP STLMLC STLMLC [id number] [facility] 2023-04-06 00:00:00 2023-04-06 00:00:00 OFFICE VISIT ESTAB PT LEVEL [id number] [facility] 2023-03-29 00:00:00 2023-03-29 00:00:00 Outpatient GC_GCBZW_Ka diyala_S PRIV PRIV [id number] [facility] 2023-02-21 00:00:00 2023-02-21 00:00:00 (TEL) STLMLC STLMLC [id number] [facility] 2022-12-22 00:00:00 2022-12-22 00:00:00 Outpatient GC_GCBZW_Ka diyala_S PRIV PRIV [id number] [facility] 2022-12-22 00:00:00 2022-12-22 00:00:00 Outpatient GC_GCBZW_Ka diyala_S PRIV PRIV [id number] [facility] 2022-12-20 00:00:00 2022-12-20 00:00:00 (IN/ASP) INJ ASP STLMLC STLMLC [id number] [facility] 2022-12-19 00:00:00 2022-12-19 00:00:00 Outpatient GC_GCBZW_Ka diyala_S PRIV PRIV [id number] [facility] 2022-12-06 00:00:00 2022-12-06 00:00:00 Outpatient GC_GCBZW_Ka diyala_S PRIV PRIV [id number] [facility] 2022-12-01 00:00:00 2022-12-01 00:00:00 (IN/ASP) INJ ASP STLMLC STLMLC [id number] [facility] 2022-11-21 00:00:00 2022-11-21 00:00:00 (IN/ASP) INJ ASP STLMLC STLMLC [id number] [facility] 2022-11-21 00:00:00 2022-11-21 00:00:00 (WEB) STLMLC STLMLC [id number] [facility] 2022-11-21 00:00:00 2022-11-21 00:00:00 (WEB) STLMLC STLMLC [id number] [facility] 2022-10-03 00:00:00 2022-10-03 00:00:00 OFFICE VISIT ESTAB PT LEVEL [id number] [facility] 2022-10-03 00:00:00 2022-10-03 00:00:00 (TEL) STLMLC STLMLC [id number] [facility] 2022-03-15 00:00:00 2022-03-15 00:00:00 (IN/ASP) INJ ASP STLMLC STLMLC [id number] [facility] 2022-02-15 00:00:00 2022-02-15 00:00:00 OFFICE VISIT ESTAB PT LEVEL [id number] [facility] 2021-10-11 00:00:00 2021-10-11 00:00:00 (IN/ASP) INJ ASP STLMLC STLMLC [id number] [facility] 2021-10-04 00:00:00 2021-10-04 00:00:00 (IN/ASP) INJ ASP STLMLC STLMLC [id number] [facility] 2021-09-27 00:00:00 2021-09-27 00:00:00 (TEL) STLMLC STLMLC [id number] [facility] 2021-09-27 00:00:00 2021-09-27 00:00:00 (IN/ASP) INJ ASP STLMLC STLMLC [id number] [facility] 2021-09-20 00:00:00 2021-09-20 00:00:00 (TEL) STLMLC STLMLC [id number] [facility] 2021-09-07 00:00:00 2021-09-07 00:00:00 (TEL) STLMLC STLMLC [id number] [facility] 2021-04-13 00:00:00 2021-04-13 00:00:00 OFFICE VISIT ESTAB PT LEVEL [id number] [facility] 2020-12-31 00:00:00 2020-12-31 00:00:00 Out[address] [address]LMLC [id number] [facility] 2020-12-22 00:00:00 2020-12-22 00:00:00 Outpatient [facility]MLC [facility]LMLC [id number] [facility] [facility] 2020-11-17 00:00:00 2020-11-17 00:00:00 Outpatient [facility]LMLC [facility] [id number] [facility] 2020-11-09 00:00:00 2020-11-09 00:00:00 Outpatient [facility] [id number] [facility] 2020-08-24 00:00:00 2020-08-24 00:00:00 Outpatient [facility]C [facility] [id number] [facility] 2020-08-23 00:00:00 2020-08-23 00:00:00 Outpatient [facility]MLC [facility] [id number] [facility] 2020-07-21 00:00:00 2020-07-21 00:00:00 Outpatient [facility] [id number] [facility] 2020-07-07 00:00:00 2020-07-07 00:00:00 Outpatient [facility]LMLC [facility]LMLC [id number] [facility] 2018-10-02 08:57:00 2018-10-02 08:57:00 [facility] [id number] [facility] 2018-10-02 08:52:00 2018-10-02 08:52:00 [facility] [id number] [facility] 2018-09-26 11:06:00 2018-09-26 11:06:00 [facility] [id number] [facility] 2018-09-20 08:15:00 2018-09-20 08:15:00 [facility] [id number] [facility] 2017-12-14 14:30:00 2017-12-14 14:30:00 [facility] [id number] [facility] 2017-12-14 09:42:00 2017-12-14 09:42:00 [facility] [id number] [facility]
--- NOTE | 2023-11-08 15:59 | RAD REPORT ---
EXAM DESCRIPTION: US - Extremity Venous Uni Ltd - 11/08/2023 3:29 pm CLINICAL HISTORY: Pain, swelling COMPARISON: None. TECHNIQUE: Real-time sonographic evaluation of the left lower extremity deep venous system was perfo rmed. FINDINGS: Normal compressibility, flow augmentation, phasic flow and spontaneous flow is identified in the left lower extremity deep venous system. No intraluminal filling defects seen. IMPRESSION: No DVT in the left lower extremity.
--- NOTE | 2023-11-08 17:14 | EDPHYS ---
Physician Documentation [facility] Name: Velvet Yoo Age: 52 yrs Sex: Female : 1970 Arrival Date: 11/08/2023 Time: 14:01 Bed 8 Private MD: ED Physician Celso Wheeler HPI: 11/07 14:30 This 52 yrs old Female presents to ER via Ambulatory with complaints of Leg Pain. cp 14:30 The patient presents with pain, that is acute. cp 14:30 The complaints affect the medial aspect of left calf and left riojas. Context: resulted cp from an unknown cause, the patient can fully bear weight, the patient is able to ambulate. Onset: The symptoms/episode began/occurred yesterday, and became worse today. Associated signs and symptoms: Pertinent positives: swelling, pain, tenderness, Pertinent negatives fever, injury. 14:30 Treatment prior to arrival includes: no previous treatment. cp 14:30 Patient reports left foot and left lower leg "feels colder than right leg". cp Historical: - Allergies: 14:13 No Known Allergies; as6 - PMHx: 14:13 GERD; as6 - PSHx: 14:13 hand (GERD); as6 - Immunization history:: Adult Immunizations up to date. - Infectious Disease History:: Denies. - Social history:: Smoking status: Patient denies any tobacco usage or history of. ROS: 14:35 Eyes: Negative for injury, pain, redness, and discharge, cp 14:35 Constitutional: Negative for body aches, chills, fever, poor PO intake, 14:35 Cardiovascular: Negative for chest pain, palpitations, 14:35 Respiratory: Negative for cough, shortness of breath, wheezing, 14:35 Back: Negative for radiated pain, acute changes, 14:35 Neuro: Negative for altered mental status, 14:35 All other systems are negative, 14:35 MS/extremity: Positive for pain, swelling, tenderness, of the left rijoas and medial cp aspect of left calf, Negative for injury or acute deformity, decreased range of motion, erythema, Exam: 14:40 Constitutional: The patient appears in no acute distress, alert, awake, cp non-diaphoretic, non-toxic, well developed, well nourished, 14:40 Head/Face: Normocephalic, atraumatic. cp 14:40 Neck: ROM/movement: is normal, is supple, without pain, no range of motions limitations, 14:40 Chest/axilla: Inspection: normal, 14:40 Cardiovascular: Rate: normal, Rhythm: regular, Pulses: Pulses are 2+ in left dorsalis pedis artery. 14:40 Respiratory: the patient does not display signs of respiratory distress, Respirations: normal, no use of accessory muscles, no retractions, labored breathing, is not present, Breath sounds: are clear throughout, no decreased breath sounds, no stridor, no wheezing, 14:40 Abdomen/GI: Inspection: abdomen appears normal, 14:40 Back: CVA tenderness, is absent, 14:40 Musculoskeletal/extremity: Extremities: grossly normal except: noted in the left riojas and medial aspect of left calf: tenderness, area of mild swelling, There is no evidence of ecchymosis, erythema, the left foot and left lower leg decreased sensation, Vital Signs: 14:11 BP 155 / 102; Pulse 86; Resp 18; Temp 97.3; Pulse Ox 96% ; Weight 86.18 kg; Height 5 as6 ft. 6 in. ; Pain 0/10; 16:33 BP 148 / 98; Pulse 82; Resp 16; Pulse Ox 98% on R/A; ko1 14:11 Body Mass Index 30.67 (86.18 kg, 167.64 cm) as6 14:11 Pain Scale: Adult as6 MDM: 14:11 Patient medically screened. cp 15:00 Differential diagnosis: superficial phlebitis, DVT, arterial occlusion, cellulitis, cp neuropathy. 17:13 Data reviewed: vital signs, nurses notes, radiologic studies, ultrasound. cp 17:13 Counseling: I had a detailed discussion with the patient and/or guardian regarding the cp historical points, exam findings, and any diagnostic results supporting the discharge/admit diagnosis, radiology results, to return to the emergency department if symptoms worsen or persist or if there are any questions or concerns that arise at home. ED course: Patient declined to wait for results of arterial US. Venous US negative with arterial US still pending. Will discharge to home for continued monitoring. 11/07 14:24 Order name: US Extremity Venous Unilateral Ltd; Complete Time: 17:00 cp 11/07 17:00 Interpretation: Report reviewed. 11/07 14:24 Order name: Lower Extremity Artery Uni Ltd US cp Administered Medications: No medications were administered Disposition: 17:37 Co-signature as Attending Physician, Celso Wheeler MD. rn Disposition Summary: 11/08/23 17:14 Discharge Ordered Notes: Location: Home cp Problem: new cp Symptoms: have improved cp Condition: Stable cp Diagnosis - Pain in left lower leg cp Followup: cp - With: Private Physician - When: 2 - 3 days - Reason: Worsening of condition Discharge Instructions: - Discharge Summary Sheet cp - Musculoskeletal Pain cp - Heat Therapy cp Forms: - Medication Reconciliation Form cp - Antibiotic Education cp - Prescription Opioid Use cp - Patient Portal Instructions cp - Leadership Thank You Letter cp Signatures: Dispatcher [employer] EDCelso Villanueva MD MD rn Page, Corey, PA PA cp Slawson, Ashby, RN RN as6 Corrections: (The following items were deleted from the chart) 11/08 12:11/07 13:35 MS/extremity: Positive for pain, swelling, tenderness, of the left riojas and cp medial aspect of left calf, Negative for injury or acute deformity, decreased range of motion, erythema, cp 11/08 12:11/07 13:35 Constitutional: Negative for body aches, chills, fever, poor PO intake, cp cp 11/08 12:07 11/07 13:35 Respiratory: Negative for cough, shortness of breath, wheezing, cp cp 11/08 12:07 11/07 13:35 Cardiovascular: Negative for chest pain, palpitations, cp cp 11/08 12:07 11/07 13:35 Eyes: Negative for injury, pain, redness, and discharge, cp cp 11/08 12:07 11/07 13:35 Back: Negative for radiated pain, acute changes, cp cp 11/08 12:07 11/07 13:35 Neuro: Negative for altered mental status, cp cp 11/08 12:07 11/07 13:35 All other systems are negative, cp cp
--- NOTE | 2023-11-08 17:14 | ER ---
Nurse's Notes [facility] Name: Velvet Yoo Age: 52 yrs Sex: Female : 1970 Arrival Date: 11/08/2023 Time: 14:01 Bed 8 Private MD: Diagnosis: Pain in left lower leg Presentation: 11/07 14:11 Chief complaint: Patient states: bruising to left leg appeared last night. no known as6 injury. pt states she is having sx Monday and needs a note saying everything is okay. Coronavirus screen: At this time, the client does not indicate any symptoms associated with coronavirus-19. Ebola Screen: No symptoms or risks identified at this time. Initial Sepsis Screen: Does the patient meet any 2 criteria? No. Patient's initial sepsis screen is negative. Does the patient have a suspected source of infection? No. Patient's initial sepsis screen is negative. Risk Assessment: Do you want to hurt yourself or someone else? Patient reports no desire to harm self or others. Onset of symptoms was November 07, 2023. 14:11 Method Of Arrival: Ambulatory as6 14:11 Acuity: ARGELIA 4 as6 Historical: - Allergies: 14:13 No Known Allergies; as6 - PMHx: 14:13 GERD; as6 - PSHx: 14:13 hand (GERD); as6 - Immunization history:: Adult Immunizations up to date. - Infectious Disease History:: Denies. - Social history:: Smoking status: Patient denies any tobacco usage or history of. Screenin:40 [facility] ED Fall Risk Assessment (Adult) History of falling in the last 3 months, ko1 including since admission No falls in past 3 months (0 pts) Confusion or Disorientation No (0 pts) Intoxicated or Sedated No (0 pts) Impaired Gait No (0 pts) Mobility Assist Device Used No (0 pt) Altered Elimination No (0 pt) Score/Fall Risk Level 0 - 2 = Low Risk Oriented to surroundings, Maintained a safe environment, Educated pt \T\ family on fall prevention, incl call for assistance when getting out of bed, Assessed \T\ reinforced patient's understanding of fall precautions, Provided non-skid footwear, Hourly rounding (assess needs \T\ fall precautionary measures) done. Abuse screen: Denies threats or abuse. Denies injuries from another. Nutritional screening: No deficits noted. Tuberculosis screening: No symptoms or risk factors identified. Assessment: 14:40 General: Appears in no apparent distress. Behavior is calm, cooperative, appropriate ko1 for age. Pain: Complains of pain in left leg. Neuro: No deficits noted. Cardiovascular: No deficits noted. Respiratory: No deficits noted. GI: No deficits noted. : No deficits noted. EENT: No deficits noted. Derm: No deficits noted. Musculoskeletal: Reports pain in left leg. Vital Signs: 14:11 BP 155 / 102; Pulse 86; Resp 18; Temp 97.3; Pulse Ox 96% ; Weight 86.18 kg; Height 5 as6 ft. 6 in. ; Pain 0/10; 16:33 BP 148 / 98; Pulse 82; Resp 16; Pulse Ox 98% on R/A; ko1 14:11 Body Mass Index 30.67 (86.18 kg, 167.64 cm) as6 14:11 Pain Scale: Adult as6 ED Course: 14:06 Patient arrived in ED. mg5 14:11 Levy Klein PA is PHCP. cp 14:11 Celso Wheeler MD is Attending Physician. cp 14:13 Triage completed. as6 14:13 Arm band placed on. as6 14:38 Sandy Alvarez, RN is Primary Nurse. ko1 14:40 Patient has correct armband on for positive identification. Bed in low position. Call ko1 light in reach. Side rails up X 1. Provided Education on: call light. Pulse ox on. NIBP on. Door closed. Noise minimized. Lights dimmed. Warm blanket given. Pillow given. 14:40 No provider procedures requiring assistance completed. ko1 15:30 US Extremity Venous Unilateral Ltd In Process Unspecified. EDMS 15:30 Lower Extremity Artery Uni Ltd US In Process Unspecified. EDMS 16:33 Patient did not have IV access during this emergency room visit. ko1 Administered Medications: No medications were administered Medication: 14:40 VIS not applicable for this client. ko1 Outcome: 17:14 Discharge ordered by . cp 17:17 Discharged to home ambulatory, ko1 17:17 Condition: stable 17:17 Discharge instructions given to patient, Instructed on discharge instructions, follow up and referral plans. Demonstrated understanding of instructions, follow-up care, 17:20 Patient left the ED. ko1 Signatures: Dispatcher [employer] EDMS Levy Klein PA PA cp Slawson, Ashby RN RN as6 Sandy Alvarez RN RN ko1 Jyoti Mcclain mg5
[2023-11-08 17:39] VITALS: BP 148/98; TEMP 97.3; O2SAT 98
--- NOTE | 2023-11-08 17:40 | RAD REPORT ---
EXAM DESCRIPTION: US - Lower Extremity Artery Uni Ltd - 11/08/2023 3:29 pm CLINICAL HISTORY: Pain;Swelling COMPARISON: No comparisons TECHNIQUE: Left lower extremity arterial Doppler examination was performed with waveform tracing. FINDINGS: Triphasic waveforms are seen throughout the left extremity arterial system to the level of the dorsal is pedis artery. IMPRESSION: No evidence of significant peripheral vascular disease.
== END 2023-11-08 17:20 | disposition home or self-care (01) ==
LOC: ER 14:01
DX: M79.662 Pain in left lower leg (principal)
CPT/HCPCS: 93926; 93971; 99283

== ENCOUNTER 2024-10-16 09:07 | Day surgery (SDC) | payer BC ==
[2024-10-11 10:45] LABS: Absolute Basophils 0.1 K/uL (0-0.5); Absolute Eosinophils 0.1 K/uL (0-0.5); Absolute Lymphocytes (CBC) 2.9 K/uL (0.7-4.9); Absolute Monocytes 0.4 K/uL (0.1-1.3); Absolute Neutrophil 2.4 K/uL (1.8-8.0); Basophils % 0.9 % (0-1.3); Eosinophils % 1.2 % (0-4.4); Hematocrit 39.2 % (36.0-45.0); Hemoglobin 13.7 g/dL (12.0-15.0); Lymphocytes % 50.3 % (15.3-44.8); MCH 32.1 pg (27.0-35.0); MCV 91.6 fL (80-100); Monocytes % 6.1 % (3.3-12.3); Neutrophils % 41.5 % (41.7-73.7); Nucleated Red Blood Cells % 0.1 % (0-0); Platelets 386 thou/uL (152-406); RBC Red Blood Cell Count 4.28 M/uL (3.86-4.86); Red Cell Distribution Width 13.2 % (12.1-15.2)
[2024-10-11 10:58] LABS: Anion Gap 10.8 mEq/L (5.0-15.0); Potassium 3.8 mEq/L (3.5-5.1)
--- NOTE | 2024-10-11 12:36 | RAD REPORT ---
EXAMINATION: TWO VIEW CHEST XR CLINICAL INDICATION: Female, 53 years old. Hypertension. PRE OP TECHNIQUE: 2 view radiographs of the chest were performed. COMPARISON: 02/26/2021 FINDINGS: The lungs are well inflated and clear. No pneumothorax or sizable effusion. The heart is normal in si ze. Mediastinal contours are unremarkable. IMPRESSION: No acute or significant abnormalities.
[2024-10-11 13:56] LABS: PT Prothrombin Time 10.9; Protime INR 0.9
--- NOTE | 2024-10-14 16:51 | EKG ---
Test Date: 2024-10-11 Test Time: 10:19:35 Paring Machine Operator: JANICE MEASUREMENT RESULTS: Intervals: Rate: 65 IA: 154 QRSD: 92 QT: 412 QTc: 428 [place]: P: -2 IA: 154 QRS: -9 T: 16 INTERPRETIVE STATEMENTS: Normal sinus rhythm Normal ECG Compared to ECG 02/26/2021 08:29:45 No significant changes Electronically Signed On 10-14-24 16:48:27 CDT by Nakul Whipple
[2024-10-16] MEDS: GABAPENTIN 100 MG CAP ONE (09:30)
[2024-10-16] MEDS: Ringers Lactate 1,000 ML IV ONE (09:30)
[2024-10-16] MEDS: ACETAMINOPHEN 500 MG TAB ONE (09:30)
[2024-10-16] MEDS: Oxycodone HCl/Acetaminophen 5/325 MG TAB ONE (09:30)
[2024-10-16] MEDS: CELECOXIB 100 MG CAPSULE ONE (09:30)
[2024-10-16] MEDS: BUPIVACAINE 0.25% PF 30 ML VIAL ONE (09:43)
[2024-10-16] MEDS: MIDAZOLAM HCL 2 MG/2 ML INJ ONE (09:43)
[2024-10-16] MEDS: LIDOCAINE 1% MPF 5 ML VIAL ONE (09:43)
[2024-10-16] MEDS: FENTANYL CITR 100 MCG/2 ML ONE (09:44)
[2024-10-16] MEDS: EPINEPHRINE 1 MG/ML VIAL ONE (09:44)
[2024-10-16] MEDS: dexAMETHasone 10 MG/ML VIAL ONE (09:44)
[2024-10-16] MEDS: TRANEXAMIC ACID 1,000 MG/10 ML VIAL IV ONE (10:05)
[2024-10-16] MEDS: MAGNESIUM SULFATE 1 gm IVPB 1 GM/100 ML BAG IV ONE (10:54)
[2024-10-16] MEDS: DEXMEDETOMIDINE HCL 200 MCG/2 ML VIAL ONE (10:54)
[2024-10-16] MEDS ORDERED: ONDANSETRON 4 MG/2 ML VIAL ONE (11:04)
[2024-10-16] MEDS ORDERED: LIDOCAINE 2% MPF 5 ML VIAL ONE (11:04)
[2024-10-16] MEDS ORDERED: propofoL 200 MG/20 ML VIAL IV ONE (11:04)
[2024-10-16 11:06] LABS: Urine Specific Gravity/Preg 1.015 (1.005-1.030)
[2024-10-16] MEDS ORDERED: EPHEDRINE SULF 50 MG/ML VIAL ONE (11:13)
[2024-10-16] MEDS: CEFAZOLIN SODIUM 2 GM/VIAL ONE (11:16)
[2024-10-16] MEDS ORDERED: KETAMINE HCL IN 0.9 % NACL 50 MG/5 ML SYRINGE IV ONE (11:16)
[2024-10-16] MEDS ORDERED: dexAMETHasone 10 MG/ML VIAL ONE (11:24)
--- NOTE | 2024-10-16 13:31 | P.BOP ---
Preoperative diagnosis: Left knee osteoarthritis Postoperative diagnosis: Same Primary procedure: Left total knee arthroplasty Venue Coordinator: NONE,NONE Estimated blood loss: 40 cc Specimen: Left knee bone remnants Findings: See dictation Anesthesia: General Complications: None Implants: Biomet Aram persona 11 narrow CR femur, E tibia, 11 CR poly, 29 patella Fluids & blood products: Per anesthesia record Transferred to: Recovery Room Condition: Good
[2024-10-16] MEDS ORDERED: HYDROCODONE/APAP 7.5/325 MG TAB PO PRN (13:33)
[2024-10-16] MEDS ORDERED: ONDANSETRON 4 MG/2 ML VIAL IV PRN (13:33)
[2024-10-16] MEDS ORDERED: ACETAMINOPHEN 325 MG TABLET PO PRN (13:33)
[2024-10-16] MEDS ORDERED: DOCUSATE NA 100 MG CAP PO PRN (13:33)
--- NOTE | 2024-10-16 13:39 | P.OP ---
Preoperative diagnosis: Left knee osteoarthritis Postoperative diagnosis: Same Primary procedure: Left total knee arthroplasty Anesthesia: General Estimated blood loss: 40 cc Specimen: Left knee bone remnants Findings: See dictation Operative Technique: Indication For Procedure: Velvet is a 53 year-old female presenting to my clinic with signs, symptoms and x-ray findings consistent with severe left knee osteoarthritis. I discussed with the patient at length risks and benefits associated with operative and nonoperative treatment. She had failed conservative treatment measures and had significant difficulties with ADLs secondary to her pain. We discussed operative treatment and elected to proceed with left total knee arthroplasty. She expressed understanding and elected to proceed with operative treatment. Description Of Procedure: After informed consent was obtained, the patient was identified in the preoperative holding area. The left lower extremity was marked. The patient was then taken to the PACU where she underwent a left lower extremity adductor canal block performed by Anesthesia. She was then taken to the operating room, transferred to the operating table in supine fashion, and placed under general anesthesia. The left lower extremity was then prepped and draped in usual sterile fashion. A time-out was initiated. The correct patient and procedure were confirmed and identified. The patient did receive her preoperative prophylactic antibiotics. The left lower extremity was then exsanguinated and tourniquet was inflated to 300 mmHg. Approximately 15 cm longitudinal incision was made centered over the anterior aspect of the left knee. Dissection was then taken to the extensor mechanism and a medial parapatellar arthrotomy was performed. The patella was everted and dislocated laterally and the knee was flexed in the fat pad. Medial and lateral meniscus and ACL were all excised exposing the distal femur. Excess hypertrophic synov ium was also excised within the suprapatellar pouch. The patient had an MRI of her left knee preoperatively for surgical planning and creation of cutting blocks. The cutting block was then placed over the distal femur and pins were then placed. The distal femoral cutting block was then placed over the pins. An nav wing was then used to ensure proper depth cut and the distal femur was then cut. The chamfer cutting guide was then placed over the distal end of the femur. Anterior, posterior cuts as well as anterior and posterior chamfer cuts were then made again confirming proper depth of the cut using an Nav wing. Excess bone remnants were then sent to pathology for further evaluation. Next, attention was taken to the proximal tibia. A tibial jig and tibial cutting block was then placed on proximal aspect of the left tibia and locked into position. Pins were then placed and alignment guide was then used to confirm proper alignment of the cut and then coronal and sagittal planes. Once this was confirmed, the cutting jig was placed over the pins and the proximal tibia was cut. Sizing trays were then selected and size 10 mm spacer was used and there was good overall balance in flexion and extension. Next, the trial implants were then placed using the size 11 narrow CR femur and a size E tibia and an 11 mm CR poly. There was overall good range of motion and good stability. The trial implants were then removed. The wound was then irrigated thoroughly with normal saline and the knee was then injected with 20 cc of 0.5% Marcaine both in the posterior capsule and medial and lateral gutters as well as quadriceps tendon and periosteum. The tibia was then punched. The femur was drilled. The cement was then prepared on the back table. Cement was then placed first on the tibial surface followed by size E tibia. Excess cement was removed with Katy elevators. Size 11 narrow CR femur was then placed on the distal femur after cement was placed on the distal femur. Excess cement was then removed and a size 11 mm CR trial poly was then placed. The knee was held in extension as the cement hardened. Undersurface of the patella was prepared debriding osteophytes using rongeurs as well as osteophytes.. Cement was placed on the undersurface of the patella after it was cut and a size 29 patella was placed. Once the cement was hardened, the knee was ranged, there was good overall stability both in flexion, extension and as well as stability with varus and valgus stresses. Trial poly was then removed and a size 11 mm CR poly was then placed and locked into position. The knee was then ranged again. There was good overall range of motion both for flexion and extension with good stability. The wound was then irrigated again thoroughly with normal saline using pulse lavage. Tourniquet was let down. Hemostasis was achieved using Bovie electrocautery. Extensor mechanism was then approximated using a #1 Vicryl both in interrupted and running fashion. The fascia was then approximated using 0 Vicryl. Subcutaneous tissue was approximated with a 2-0 Vicryl. Skin was approximated using romulo. Sterile dressings were applied. The patient was awakened and transferred back in stable condition Complications: None Implants: Biomet Aram persona 11 narrow CR femur, E tibia, 11 CR poly, 29 patella Fluids & blood products: Per anesthesia record Transferred to: Recovery Room Condition: Good
[2024-10-16] MEDS: HYDROMORPHONE HCL 1 MG/ML INJ ONE ×2 (14:09→14:24)
[2024-10-16] MEDS: KETOROLAC 30 MG/ML INJ ONE (14:29)
[2024-10-16 14:51] VITALS: O2SAT 97
[2024-10-16 15:10] LABS: Hematocrit 39.4 % (36.0-45.0); Hemoglobin 13.8 g/dL (12.0-15.0)
[2024-10-16 15:30] VITALS: BMI 29.7
[2024-10-16] MEDS: CEFAZOLIN SODIUM 2 GM in NA CHLORIDE 0.9% 100 ML IVPB SCH (16:55)
--- NOTE | 2024-10-16 17:23 | RAD REPORT ---
EXAM: Knee Left 2 View INDICATION: Post Op COMPARISON: None FINDINGS: No acute fracture. Status post left knee arthroplasty. No immediate hardware convocations. Small knee effusion which is not unexpected. No significant focal degenerative changes. Other: N/A IMPRESSION: Status post left knee arthroplasty. No hardware complications or acute fractures.
[2024-10-16] MEDS: TRAMADOL HCL 50 MG TAB PO PRN (22:21)
[2024-10-17 05:40] LABS: Hematocrit 35.2 % (36.0-45.0); Hemoglobin 12.3 g/dL (12.0-15.0)
[2024-10-17] MEDS: THYROID 30 MG TAB PO SCH (05:58)
[2024-10-17] MEDS: ENOXAPARIN 30 MG/0.3 ML SQ SCH (05:58)
[2024-10-17] MEDS: PANTOPRAZOLE 40MG TABLET PO SCH (07:45)
[2024-10-17] MEDS ORDERED: HOME MED 1 EA UNK (Omeprazole [Prilosec] 40 MG Capsule.Dr) PO SCH (09:00)
[2024-10-17] MEDS: PROGESTERONE MICRONIZED 200 MG PO SCH (09:00)
[2024-10-17] MEDS ORDERED: HOME MED 1 EA UNK (Thyroid,Pork [Armour Thyroid] 60 MG Tablet) PO SCH (09:00)
[2024-10-17] MEDS: FAMOTIDINE 20 MG TAB PO SCH (09:00)
[2024-10-17] MEDS ORDERED: HOME MED 1 EA UNK (Spironolactone [Spironolactone] 50 MG Tablet) PO SCH (09:00)
[2024-10-17 09:05] VITALS: BP 129/64; TEMP 97.6
[2024-10-17] MEDS: SPIRONOLACTONE 25 MG TABLET PO SCH (09:16)
[2024-10-17] MEDS: VALACYCLOVIR 500 MG TAB PO SCH (09:17)
[2024-10-17] MEDS: CELECOXIB 100 MG CAPSULE PO SCH (09:17)
[2024-10-23] MEDS ORDERED: TIRZEPATIDE 15 MG/0.5 ML SQ SCH (09:00)
== END 2024-10-17 10:31 | disposition home health service (06) ==
LOC: OR 09:07 → 2ND 13:33 → OR 10-17 10:31
PROVIDERS: ATTEND Orthopaedic Surgery Sports Medicine
PROC: 0SRD0J9 Replacement of Left Knee Joint with Synthetic Substitute, Cemented, Open Approach (ICD-10-PCS; principal; 2024-10-16 11:00)
DX: M17.12 Unilateral primary osteoarthritis, left knee (principal)
CPT/HCPCS: 93005; 85025; 80048; 36415 ×3; 81025; 85610; 88305; 88311; 85730; 85018 ×2; 85014 ×2; 71046; 73560; 97110; 97116; 97139; 97161; 94010; 27447; J3490; C1776; J3475; J2704; J2003 ×2; J1650 ×2; J2250; J3010; J1100 ×2; J0171; J1171; J2405; J7120

== ENCOUNTER 2025-01-21 09:10 | Inpatient (IN) | payer BC ==
--- NOTE | 2025-01-21 09:42 | RAD REPORT ---
EXAM: CT Ct Stroke Brain Wo Cont HISTORY: STROKE ALERT COMPARISON: None TECHNIQUE: Multiple contiguous axial images were obtained for a CT of the brain without contrast. Sag ittal and coronal reformats were performed. One or more of the following dose reduction techniques were used: Automated exposure control, adjus tment of the mA and kV according to patient size, and iterative reconstruction. Unless otherwise specified, incidental findings do not require dedicated imaging follow-up. FINDINGS: No evidence of hydrocephalus, intracranial hemorrhage, or extra-axial fluid collection. Tiny right subinsular focus of hypoattenuation on axial image 14, could relate to a prominent perivas cular space or less likely a small infarct of indeterminate age. The brain is otherwise normal in morphology. The calvarium is intact. The visualized paranasal sinuses and mastoid air cells are essentially clear . IMPRESSION: Tiny right subinsular focus of hypoattenuation, could relate to a prominent perivascular space or les s likely a small infarct of indeterminate age. No evidence of acute intracranial hemorrhage or mass effect. THIS REPORT CONTAINS FINDINGS THAT MAY BE CRITICAL TO PATIENT CARE. The findings were verbally commun icated via telephone to Celso Wheeler MD on 01/21/2025 9:38 AM.
[2025-01-21] MEDS ORDERED: TENECTEPLASE 50 MG/10 ML VIAL IV ONE (09:49)
[2025-01-21 09:54] LABS: Absolute Lymphocytes (CBC) 3.0 K/uL (0.7-4.9); Hematocrit 42.4 % (36.0-45.0); Hemoglobin 14.5 g/dL (12.0-15.0); MCH 30.3 pg (27.0-35.0); MCHC 34.2 g/dL (32.0-36.0); MCV 88.8 fL (80-100); MPV 7.7 fL (7.6-11.3); Nucleated RBC Absolute Count 0.0 (0-0); Nucleated Red Blood Cells % 0.0 % (0-0); RBC Red Blood Cell Count 4.78 M/uL (3.86-4.86); White Blood Count 8.40 thou/uL (4.3-10.9)
[2025-01-21 10:04] LABS: PT Prothrombin Time 11.4 SECONDS (10-13.0); PTT, Activated Partial Thromb 28.9 SECONDS (27.2-37.4); Protime INR 1.01
--- NOTE | 2025-01-21 10:05 | RAD REPORT ---
EXAMINATION: CTA HEAD CLINICAL INDICATION: Female, 54 years old. left leg weak/numb TECHNIQUE: Axial CT images were obtained through the head after intravenous contrast utilizing angiog raphic protocol with 3D post-processing (maximum intensity projection images, volume rendered images and/or shaded surface rendered images). One or more of the following dose reduction technique s were used: Automated exposure control, adjustment of the mA and/or kV according to patient size, and/or iterative reconstruction. Unless otherwise specified, incidental findings do not require dedic ated imaging follow-up. COMPARISON: No prior exam. FINDINGS: ICA: The petrous, cavernous, and supraclinoid segments of the bilateral internal carotid arteries are normal. AMINA: Anterior cerebral arteries are normal bilaterally. The anterior communicating artery is patent. MCA: Middle cerebral arteries are patent bilaterally with mild multifocal narrowing along the left mo re than right MCA branches. BALLOON ARTIST: Posterior cerebral arteries are/limited irregularity patent bilaterally with mild multifocal jessica rowing and luminal irregularity along the left BALLOON ARTIST. Vertebrobasilar: The vertebral arteries are patent. The basilar artery is normal in appearance. 3D images confirm these findings. IMPRESSION: No evidence of large vessel occlusion or hemodynamically significant stenosis. Mild multifocal narrowing and luminal irregularity along the MCA branches more so on the left, and th e left BALLOON ARTIST, which could relate to early intracranial atherosclerotic changes versus sequelae of vasculitis.
[2025-01-21 10:12] LABS: Anion Gap 9.8 mEq/L (5.0-15.0); BUN Blood Urea Nitrogen 13 mg/dL (7-18); Glucose Level 93 mg/dL (74-106); Potassium 3.8 mEq/L (3.5-5.1)
[2025-01-21 10:13] LABS: Troponin High Sensitivity < 3.0 pg/mL (<58.9)
--- NOTE | 2025-01-21 10:13 | RAD REPORT ---
EXAMINATION: CT Neck Angio CLINICAL INDICATION: Female, 54 years old. [facility] MAIN code stroke Bed Name: 13 TECHNIQUE: Axial CT images were obtained from the aortic arch to the skull base after intravenous con trast utilizing angiographic protocol. Multiplanar reformats, as well as 3D post-processing (maximum intensity projection images, volume rendered images and/or shaded surface rendered images) w ere generated and reviewed. One or more of the following dose reduction techniques were used: Automated exposure control, adjustment of the mA and/or kV according to patient size, and/or iterativ e reconstruction. Unless otherwise specified, incidental findings do not require dedicated imaging follow-up. COMPARISON: No prior exam. FINDINGS: AORTA: The imaged aortic arch is normal. Normal three-vessel configuration of the arch. CCA: No artifact The common carotid arteries are patent and normal in caliber. ICA/ECA: Bilateral internal and external carotid arteries are patent. There is no significant interna l carotid artery stenosis. VERTEBRAL: The cervical vertebral arteries are patent to the skull base. Vertebral arteries are codom inant. SOFT TISSUE: No significant neck soft tissue abnormalities. The visualized lung apices are clear. 3D images confirm these findings. IMPRESSION: No significant flow abnormality of the neck vessels is identified. NASCET criteria used to quantify ICA stenosis, with the following grading scheme: Mild 0-49% stenosis Moderate 50-69% stenosis Severe 70-99% stenosis Reference: [place] Symptomatic Carotid Endarterectomy Trial Collaborators; Emily MORENO, Jenna BAGLEY, Bailey RB, et al. Beneficial effect of carotid endarterectomy in symptomatic patients with high-grade carotid stenosis. N Engl J Med. 1990 15;325(7):445-53.
--- OUTSIDE RECORDS SUMMARY | 2025-01-21 10:18 | XMS REPORT | Continuity of Care Document ---
Author Name Unknown Address [address] [facility] [address] [place] [address] [facility] [place] Address [address] [facility] [address] [place] [address] Care Team Providers Care Skin Care Technician Name Role Phone Juan Zuniga Attending Clinician Unavailable [email or web address] Attending Clinician Unavaila Guru Funes Admitting Clinician Unavailable NICKOLAS KLINE Admitting Clinician Unavailabl e [email or web address] Admitting Clinician Unavaila ble Payers Payer Name Policy Type Policy Number Effective Date Expirati on Date Source [facility] [place] 6 [id number] [facility] [place] [id number] 2022 00:00:00 [facility] [place] 6 [id number] Common [facility] AETNA C1 [id number] [facility] Condition Name Condition Details Condition Category Status Onset Date Resolution Date Last Treatment Date Treating Clinician Comments Source Bacterial vaginosis Bacterial Vaginosis Problem Active 6-09 00:00: 00 [facility] Atrophic vaginitis Atrophic Vaginitis Problem Active 6-05 00:00: 00 [facility] Increased frequency of urination Increased Frequency of Urination Problem Active 6-05 00:00: 00 [facility] Urinary symptoms Urinary Symptoms Problem Active 6-05 00:00: 00 [facility] Deep pain on intercours e Deep Pain on Intercours e Problem Active 5-08 00:00: 00 [facility] Menopausal symptom Menopausal Symptom Problem Active 3-11 00:00: 00 [facility] Genital herpes simplex Genital Herpes Simplex Problem Active 1-09 00:00: 00 [facility] Herpes simplex Herpes Simplex Problem Active 8-24 00:00: 00 [facility] Hypothyroi dism Hypothyroi dism Problem Active 8-24 00:00: 00 [facility] Hyperlipid emia Hyperlipid emia Problem Active 8-24 00:00: 00 [facility] Anxiety Anxiety Problem Active 8-24 00:00: 00 [facility] Essential hypertensi on Essential Hypertensi on Problem Active 8-24 00:00: 00 [facility] Gastroesop hageal reflux disease Gastroesop hageal Reflux Disease Problem Active 8-24 00:00: 00 [facility] Postmenopa usal bleeding Postmenopa usal Bleeding Problem Active 4-21 00:00: 00 [facility] Body mass index 30+ - obesity Body Mass Index 30+ - Obesity Problem Active 4-08 00:00: 00 [facility] Screening for malignant neoplasm of colon Screening for Malignant Neoplasm of Colon Problem Active 4-08 00:00: 00 [facility] Fibrocysti c change [...] Severe obesity Severe Obesity Problem Active 2020-05 1- 00:00: 00 [facility] Inconclusi ve mammograph y finding Inconclusi ve Mammograph y Finding Problem Active 8-16 00:00: 00 [facility] Abnormal findings on diagnostic imaging of breast Abnormal Findings on Diagnostic Imaging of Breast Problem Active 8-16 00:00: 00 [facility] Moderate recurrent major depression Moderate Recurrent Major Depression Problem Active 4-07 00:00: 00 [facility] Mixed urinary incontinen ce Mixed Urinary Incontinen ce Problem Active 4-07 00:00: 00 [facility] Screening mammograph y Screening Mammograph y Problem Active 4-07 00:00: 00 [facility] Herpetic vulvovagin itis Herpetic Vulvovagin itis Problem Active 3-25 00:00: 00 [facility] Chlamydial infection of lower genitourin [place] tract Chlamydial Infection of Lower Genitourin [place] Tract Problem Active 3-25 00:00: 00 [facility] Venereal disease screening Venereal Disease Screening Problem Active 3-25 00:00: 00 [facility] Irregular periods Irregular Periods Problem Active 3-09 00:00: 00 [facility] Mild major depression , single episode Mild Major Depression , Single Episode Problem Active 8-06 00:00: 00 [facility] Removal of intrauteri ne device Removal of Intrauteri ne Device Problem Active 8-06 00:00: 00 [facility] Abscess of vulva Abscess of Vulva Problem Active 7 00:00: 00 [facility] Menopause present Menopause Present Problem Active 20 00:00: 00 [facility] Contracept ion care education Contracept ion Care Education Problem Active 302 00:00: 00 [facility] Candidiasi s of vagina Candidiasi s of Vagina Problem Active 02-10 00:00: 00 [facility] Major depression , single episode Major Depression , Single Episode Problem Active 02-10 00:00: 00 [facility] Harmful pattern of use of alcohol Harmful Pattern of Use of Alcohol Problem Active 02-10 00:00: 00 [facility] Acute vaginitis Acute Vaginitis Problem Active 02-10 00:00: 00 [facility] Pruritus of vulva Pruritus of Vulva Problem Active 02-10 00:00: 00 [facility] Counseling Counseling Problem Active 02-10 00:00: 00 [facility] Gynecologi c examinatio n Gynecologi c Examinatio n Problem Active 07-22 00:00: 00 [facility] Herpesviru s infection Herpesviru s Infection Problem Active 07-22 00:00: 00 [facility] Postcoital bleeding Postcoital Bleeding Problem Active 07-22 00:00: 00 [facility] Gynecologi david examinatio n abnormal Gynecologi david Examinatio n Abnormal Problem Active 07-22 00:00: 00 [facility] Osteoarthr itis of knee Primary osteoarthr itis of right knee Problem [facility] e of right ankle Contractur e of right ankle Problem [facility] Contractur e of left ankle Contractur e of left ankle Problem [facility] Lumbar radiculopa thy Bilateral lumbar radiculopa thy Problem [facility] Chronic pain syndrome Chronic pain syndrome Problem [facility] [id number] Tear of right rotator cuff, unspecifie d tear extent, unspecifie d whether traumatic Problem [facility] [id number] Incomplete tear of right rotator cuff, unspecifie d whether traumatic Problem [facility] [id number] History of total left knee replacemen t Problem [facility] [id number] Primary osteoarthr itis of left knee Problem [facility] [id number] Elevated blood pressure reading without diagnosis of hypertensi on Problem [facility] [id number] Osteopenia of multiple sites Problem [facility] [id number] GERD without esophagiti s Problem [facility] [id number] Seasonal allergies Problem [facility] [id number] Urge incontinen ce of urine Problem [facility] [id number] Vitamin D deficiency Problem [facility] [id number] Right carpal tunnel syndrome Problem [facility] [id number] Neuropathy of right radial nerve Problem [facility] [id number] SI joint arthritis Problem [facility] [id number] Pain, joint, knee, left Problem [facility] [id number] Right hand pain Problem [facility] [id number] 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 Problem [facility] [id number] Stress incontinen ce Problem [facility] [id number] Low back pain, unspecifie d back pain laterality , unspecifie d chronicity , with sciatica presence unspecifie d Problem [facility] [id number] Other chronic pain Problem [facility] [id number] Trochanter ic bursitis, left hip Problem [facility] [id number] Pain of left hip joint Problem [facility] [id number] Arthritis of knee, left Problem [facility] Social History Social Habit Start Date Stop Date Quantity Comments Source History of Tobacco Use [facility] Smoking Status Start Date Stop Date Source Never Smoker [facility] Former Smoker 2024-03-13 00:00:00 2024-03-13 00:00:00 [facility] Medications Ordered Medication Name Filled Medication Name Start Date Stop Date Current Medication? Ordering Clinician Indication Dosage Frequency Signature (SIG) Comments Components Source Celecoxib 200 MG Celecoxib 200 MG 12-26 00:00: 00 No 1{capsu le_as_n eeded} QD Celecoxib 200 MG traMADol HCl 50 MG traMADol HCl 50 MG 12-26 00:00: 00 No 1{table t_as_ne eded} QID traMADol HCl 50 MG Celecoxib 200 MG Celecoxib 200 MG 12-26 00:00: 00 No 1{capsu le_with _food} QD Celecoxib 200 MG BUPivacaine HCl BUPivacaine HCl -14 00:00: 00 No 4mL [facility] [place] Thyroid 90 MG [place] Thyroid 90 MG 08-16 00:00: 00 No 1{table t_on_an _empty_ stomach } QD [place] Thyroid 90 MG Famotidine 20 MG Famotidine 20 MG 08-16 00:00: 00 No 1{table t_at_be dtime_a s_neede d} QD Famotidine 20 MG Omeprazole 40 MG Omeprazole 40 MG - 00:00: 00 No QD Omeprazole 40 MG Bupivicaine [place] Bupivicaine [place] - 00:00: 00 No 4mL [facility] Kenalog (Triamcinol one) Kenalog (Triamcinol one) 2021-05 0-18 00:00: 00 No 40mg [facility] Hyalgan Hyalgan 5-02 00:00: 00 No 20mg [facility] vitamin B complex capsule Take by oral route. vitamin B complex capsule Take by oral route. No vitamin B complex capsule Take by oral route. [facility] Zepbound 15 mg/0.5 mL subcutaneou s pen injector INJECT 0.5 ML(S) SUBCUTANEOU SLY WEEKLY. Zepbound 15 mg/0.5 mL subcutaneou s pen injector INJECT 0.5 ML(S) SUBCUTANEOU SLY WEEKLY. No Zepbound 15 mg/0.5 mL subcutaneo us pen injector INJECT 0.5 ML(S) SUBCUTANEO USLY WEEKLY. [facility] Uro-MP 118 mg-10 mg-40.8 mg-36 mg capsule TAKE ONE (1) CAPSULE(S) BY MOUTH FOUR TIMES A DAY NEEDED FOR SEVEN DAYS. Uro-MP 118 mg-10 mg-40.8 mg-36 mg capsule TAKE ONE (1) CAPSULE(S) BY MOUTH FOUR TIMES A DAY NEEDED FOR SEVEN DAYS. No 1capsul e(s) QID Uro-MP 118 mg-10 mg-40.8 mg-36 mg capsule TAKE ONE (1) CAPSULE(S) BY MOUTH FOUR TIMES A DAY NEEDED FOR SEVEN DAYS. [facility] ciprofloxac in 500 mg tablet TAKE ONE (1) TABLET(S) BY MOUTH EVERY TWELVE HOURS FOR 10 DAYS. ciprofloxac in 500 mg tablet TAKE ONE (1) TABLET(S) BY MOUTH EVERY TWELVE HOURS FOR 10 DAYS. No ciprofloxa shonda 500 mg tablet TAKE ONE (1) TABLET(S) BY MOUTH EVERY TWELVE HOURS FOR 10 DAYS. [facility] clindamycin 2 % vaginal cream INSERT ONE (1) APPLICATORF UL(S) IN VAGINA AT BEDTIME FOR 7 DAYS. clindamycin 2 % vaginal cream INSERT ONE (1) APPLICATORF UL(S) IN VAGINA AT BEDTIME FOR 7 DAYS. No clindamyci n 2 % vaginal cream INSERT ONE (1) APPLICATOR FUL(S) IN VAGINA AT BEDTIME FOR 7 DAYS. [facility] hydrocodone 7.5 mg-acetamin ophen 325 mg tablet TAKE ONE (1) TABLET(S) BY MOUTH EVERY SIX HOURS NEEDED. hydrocodone 7.5 mg-acetamin ophen 325 mg tablet TAKE ONE (1) TABLET(S) BY MOUTH EVERY SIX HOURS NEEDED. No hydrocodon e 7.5 mg-acetami nophen 325 mg tablet TAKE ONE (1) TABLET(S) BY MOUTH EVERY SIX HOURS NEEDED. [facility] metoclopram carlos 10 mg tablet TAKE THREE (3) TABLETS BY MOUTH DIRECTED PER YOUR COLONOSCOPY PREP PACKET. metoclopram carlos 10 mg tablet TAKE THREE (3) TABLETS BY MOUTH DIRECTED PER YOUR COLONOSCOPY PREP PACKET. No metoclopra mide 10 mg tablet TAKE THREE (3) TABLETS BY MOUTH DIRECTED PER YOUR COLONOSCOP Y PREP PACKET. [facility] metronidazo le 500 mg tablet TAKE ONE (1) TABLET(S) BY MOUTH EVERY EIGHT HOURS FOR 10 DAYS. metronidazo le 500 mg tablet TAKE ONE (1) TABLET(S) BY MOUTH EVERY EIGHT HOURS FOR 10 DAYS. No metronidaz ole 500 mg tablet TAKE ONE (1) TABLET(S) BY MOUTH EVERY EIGHT HOURS FOR 10 DAYS. [facility] nitrofurant oin monohydrate /macrocryst als 100 mg capsule TAKE ONE (1) CAPSULE(S) BY MOUTH TWICE A DAY FOR SEVEN DAYS. nitrofurant oin monohydrate /macrocryst als 100 mg capsule TAKE ONE (1) CAPSULE(S) BY MOUTH TWICE A DAY FOR SEVEN DAYS. No nitrofuran toin monohydrat e/macrocry stals 100 mg capsule TAKE ONE (1) CAPSULE(S) BY MOUTH TWICE A DAY FOR SEVEN DAYS. [facility] ondansetron 4 mg disintegrat ing tablet DISSOLVE ONE (1) TABLET(S) BY MOUTH DAILY NEEDED. ondansetron 4 mg disintegrat ing tablet DISSOLVE ONE (1) TABLET(S) BY MOUTH DAILY NEEDED. No ondansetro n 4 mg disintegra ting tablet DISSOLVE ONE (1) TABLET(S) BY MOUTH DAILY NEEDED. [facility] sodium,pota ssium,mag sulfates 17.5 gram-3.13 gram-1.6 gram oral soln TAKE DIRECTED BY YOUR COLONOSCOPY PACKET INSTRUCTION S. sodium,pota ssium,mag sulfates 17.5 gram-3.13 gram-1.6 gram oral soln TAKE DIRECTED BY YOUR COLONOSCOPY PACKET INSTRUCTION S. No sodium,pot assium,mag sulfates 17.5 gram-3.13 gram-1.6 gram oral soln TAKE DIRECTED BY YOUR COLONOSCOP Y PACKET INSTRUCTIO NS. [facility] tramadol 50 mg tablet TAKE ONE (1) TABLET(S) BY MOUTH EVERY SIX HOURS NEEDED. tramadol 50 mg tablet TAKE ONE (1) TABLET(S) BY MOUTH EVERY SIX HOURS NEEDED. No tramadol 50 mg tablet TAKE ONE (1) TABLET(S) BY MOUTH EVERY SIX HOURS NEEDED. [facility] Xarelto 10 mg tablet TAKE ONE (1) TABLET(S) BY MOUTH ONCE A DAY. Xarelto 10 mg tablet TAKE ONE (1) TABLET(S) BY MOUTH ONCE A DAY. No Xarelto 10 mg tablet TAKE ONE (1) TABLET(S) BY MOUTH ONCE A DAY. [facility] famotidine 20 mg tablet famotidine [...] day by oral route for 90 days. [facility] spironolact one 50 mg tablet TAKE ONE (1) OR TWO (2) TABLET(S) BY MOUTH EVERY NIGHT. spironolact one 50 mg tablet TAKE ONE (1) OR TWO (2) TABLET(S) BY MOUTH EVERY NIGHT. No spironolac tone 50 mg tablet TAKE ONE (1) OR TWO (2) TABLET(S) BY MOUTH EVERY NIGHT. [facility] valacyclovi r 500 mg tablet TAKE 1 TABLET BY MOUTH ONCE DAILY valacyclovi r 500 mg tablet TAKE 1 TABLET BY MOUTH ONCE DAILY No valacyclov ir 500 mg tablet TAKE 1 TABLET BY MOUTH ONCE DAILY [facility] Spironolact one 50 MG Spironolact one 50 MG No 1{table t} QD Spironolac tone 50 MG Progesteron e 200 MG Progesteron e 200 MG No 1{capsu le_at_b edtime} QD Progestero ne 200 MG valACYclovi r HCl 500 MG valACYclovi r HCl 500 MG No 1{table t} QD valACYclov ir HCl 500 MG CeleBREX 200 MG CeleBREX 200 MG No 1{capsu le} QD CeleBREX 200 MG Mounjaro 15 MG/0.5ML Mounjaro 15 MG/0.5ML No Mounjaro 15 MG/0.5ML Tylenol Extra Strength 500 MG Tylenol Extra Strength 500 MG No 1{table t_as_ne eded} QID Tylenol Extra Strength 500 MG Omeprazole 40 MG Omeprazole 40 MG No QD Omeprazole 40 MG valACYclovi r HCl 500 MG valACYclovi r HCl 500 MG No 1{table t} QD valACYclov ir HCl 500 MG Famotidine 20 MG Famotidine 20 MG No 1{table t_at_be dtime_a s_neede d} QD Famotidine 20 MG [place] Thyroid 90 MG [place] Thyroid 90 MG No 1{table t_on_an _empty_ stomach } QD [place] Thyroid 90 MG Probiotic 250 MG Probiotic 250 MG No Probiotic 250 MG Spironolact one 100 MG Spironolact one 100 MG No 1{table t} QD Spironolac tone 100 MG [place] Thyroid 60 mg tablet TAKE ONE (1) TABLET(S) BY MOUTH IN THE MORNING. [place] Thyroid 60 mg tablet TAKE ONE (1) TABLET(S) BY MOUTH IN THE MORNING. No [place] Thyroid 60 mg tablet TAKE ONE (1) TABLET(S) BY MOUTH IN THE MORNING. [facility] bupropion HCl SR 150 mg tablet,12 hr sustained-r elease TAKE ONE (1) TABLET(S) BY MOUTH DAILY IN THE MORNING FOR 10 DAYS THEN TAKE 1 TABLET TWICE A DAY. bupropion HCl SR 150 mg tablet,12 hr sustained-r elease TAKE ONE (1) TABLET(S) BY MOUTH DAILY IN THE MORNING FOR 10 DAYS THEN TAKE 1 TABLET TWICE A DAY. No bupropion HCl SR 150 mg tablet,12 hr sustained- release TAKE ONE (1) TABLET(S) BY MOUTH DAILY IN THE MORNING FOR 10 DAYS THEN TAKE 1 TABLET TWICE A DAY. [facility] celecoxib 200 mg capsule TAKE ONE (1) CAPSULE(S) BY MOUTH DAILY NEEDED. celecoxib 200 mg capsule TAKE ONE (1) CAPSULE(S) BY MOUTH DAILY NEEDED. No celecoxib 200 mg capsule TAKE ONE (1) CAPSULE(S) BY MOUTH DAILY NEEDED. [facility] DIM-plus DIM-plus No DIM-plus [facility] estradiol pellets estradiol pellets No estradiol pellets [facility] magnesium magnesium No magnesium [facility] Multi Vitamin Multi Vitamin No Multi Vitamin [facility] naltrexone 50 mg tablet TAKE ONE-HALF TABLET BY MOUTH DAILY. naltrexone 50 mg tablet TAKE ONE-HALF TABLET BY MOUTH DAILY. No naltrexone 50 mg tablet TAKE ONE-HALF TABLET BY MOUTH DAILY. [facility] Probiotic Probiotic No Probiotic [facility] testosteron e pellets testosteron e pellets No testostero ne pellets [facility] Vital Signs Vital Name Observation Time Observation Value Comments S yahairace height 2024-12-26 08:00:00 66 [in_i] Commo n [facility] weight 2024-12-26 08:00:00 185 [lb_av] Comm on [facility] temperature 2024-12-26 08:00:00 97.5 [degF] Com [facility] bmi 2024-12-26 08:00:00 29.86 kg/m2 Comm on [facility] blood pressure systolic 2024-12-26 08:00:00 136 mm[Hg] Common Sp[facility] blood pressure diastolic 2024-12-26 08:00:00 84 mm[Hg] Common Spiri t [facility] height 2024-11-28 10:00:00 66 [in_i] Commo n [facility] weight 2024-11-28 10:00:00 185 [lb_av] Comm on [facility] temperature 2024-11-28 10:00:00 97.7 [degF] Com [facility] bmi 2024-11-28 10:00:00 29.86 kg/m2 Comm on [facility] blood pressure systolic 2024-11-28 10:00:00 126 mm[Hg] Common Spiri t [facility] blood pressure diastolic 2024-11-28 10:00:00 80 mm[Hg] [facility] height 2024-10-31 10:30:00 66 [in_i] Commo n [facility] weight 2024-10-31 10:30:00 185.1 [lb_av] Co mmon [facility] temperature 2024-10-31 10:30:00 98.0 [degF] Com [facility] bmi 2024-10-31 10:30:00 29.87 kg/m2 Comm on [facility] blood pressure systolic 2024-10-31 10:30:00 132 mm[Hg] Common Spiri t [facility] blood pressure diastolic 2024-10-31 10:30:00 84 mm[Hg] [facility] height 2024-10-22 15:00:00 66 [in_i] Commo n [facility] weight 2024-10-22 15:00:00 185 [lb_av] Comm on [facility] temperature 2024-10-22 15:00:00 98.2 [degF] Com mon [facility] bmi 2024-10-22 15:00:00 29.86 kg/m2 Comm on [facility] blood pressure systolic 2024-10-22 15:00:00 142 mm[Hg] Common Spiri t [facility] blood pressure diastolic 2024-10-22 15:00:00 85 mm[Hg] [facility] Height 2024-10-03 00:00:00 66 [in_i] [facility] BP Systolic 2024-10-03 00:00:00 128 mm[Hg] [facility] Body Weight 2024-10-03 00:00:00 186 [lb_av] [facility] BMI (Body Mass Index) 2024-10-03 00:00:00 30 kg/m2 [facility] BP Diastolic 2024-10-03 00:00:00 88 mm[Hg] [facility] height 2024-10-01 15:30:00 66 [in_i] Commo n [facility] weight 2024-10-01 15:30:00 185 [lb_av] Comm on [facility] temperature 2024-10-01 15:30:00 98.0 [degF] Com [facility] bmi 2024-10-01 15:30:00 29.86 kg/m2 Comm on [facility] blood pressure systolic 2024-10-01 15:30:00 136 mm[Hg] Common Spiri t [facility] blood pressure diastolic 2024-10-01 15:30:00 84 mm[Hg] [facility] height 2024-09-26 11:00:00 66 [in_i] Commo n [facility] weight 2024-09-26 11:00:00 185 [lb_av] Comm on [facility] temperature 2024-09-26 11:00:00 97.6 [degF] Com [facility] bmi 2024-09-26 11:00:00 29.86 kg/m2 Comm on [facility] blood pressure systolic 2024-09-26 11:00:00 146 mm[Hg] [facility] blood pressure diastolic 2024-09-26 11:00:00 94 mm[Hg] Common [facility] height 2024-07-30 08:00:00 66 [in_i] Commo n [facility] weight 2024-07-30 08:00:00 185 [lb_av] Comm on [facility] temperature 2024-07-30 08:00:00 98.2 [degF] Com [facility] bmi 2024-07-30 08:00:00 29.86 kg/m2 Comm on [facility] blood pressure systolic 2024-07-30 08:00:00 126 mm[Hg] Common [facility] blood pressure diastolic 2024-07-30 08:00:00 82 mm[Hg] Common [facility] BP Diastolic 2024-06-06 00:00:00 82 mm[Hg] [facility] Height 2024-06-06 00:00:00 66 [in_i] [facility] BP Systolic 2024-06-06 00:00:00 134 mm[Hg] [facility] BMI (Body Mass Index) 2024-06-06 00:00:00 31.2 kg/m2 [facility] Body Weight 2024-06-06 00:00:00 193.2 [lb_av] [facility] height 2024-05-27 15:15:00 66 [in_i] Commo n [facility] weight 2024-05-27 15:15:00 189.6 [lb_av] Co mmon [facility] temperature 2024-05-27 15:15:00 97.9 [degF] Com [facility] bmi 2024-05-27 15:15:00 30.6 kg/m2 Commo n [facility] blood pressure systolic 2024-05-27 15:15:00 128 mm[Hg] Common Spiri t [facility] blood pressure diastolic 2024-05-27 15:15:00 74 mm[Hg] [facility] height 2024-05-16 15:30:00 66 [in_i] Commo n [facility] weight 2024-05-16 15:30:00 190 [lb_av] Comm on [facility] temperature 2024-05-16 15:30:00 98.6 [degF] Com mon [facility] bmi 2024-05-16 15:30:00 30.66 kg/m2 Comm on [facility] blood pressure systolic 2024-05-16 15:30:00 130 mm[Hg] Common [facility] blood pressure diastolic 2024-05-16 15:30:00 76 mm[Hg] Common [facility] height 2024-05-09 10:30:00 66 [in_i] Commo n [facility] weight 2024-05-09 10:30:00 190 [lb_av] Comm on [facility] temperature 2024-05-09 10:30:00 99.4 [degF] Com mon [facility] bmi 2024-05-09 10:30:00 30.66 kg/m2 Comm on [facility] blood pressure systolic 2024-05-09 10:30:00 130 mm[Hg] Common [facility] blood pressure diastolic 2024-05-09 10:30:00 76 mm[Hg] Common [facility] height 2024-02-15 15:15:00 66 [in_i] [facility] weight-kg 2024-02-15 15:15:00 86.18 kg [facility] bmi 2024-02-15 15:15:00 30.66 kg/m2 [facility] Height 2024-02-14 00:00:00 66 [in_i] [facility] Body Weight 2024-02-14 00:00:00 195 [lb_av] [facility] BP Diastolic 2024-02-14 00:00:00 83 mm[Hg] [facility] BMI (Body Mass Index) 2024-02-14 00:00:00 31.5 kg/m2 [facility] BP Systolic 2024-02-14 00:00:00 134 mm[Hg] [facility] height 2023-10-24 15:30:00 66 [in_i] Commo n [facility] weight 2023-10-24 15:30:00 190 [lb_av] Comm on [facility] temperature 2023-10-24 15:30:00 98.4 [degF] Com [facility] bmi 2023-10-24 15:30:00 30.66 kg/m2 Comm on [facility] blood pressure systolic 2023-10-24 15:30:00 136 mm[Hg] [facility] blood pressure diastolic 2023-10-24 15:30:00 86 mm[Hg] Common [facility] height 2023-10-17 15:30:00 66 [in_i] Commo n [facility] weight 2023-10-17 15:30:00 190 [lb_av] Comm on [facility] temperature 2023-10-17 15:30:00 98.1 [degF] Com mon [facility] bmi 2023-10-17 15:30:00 30.66 kg/m2 Comm on [facility] blood pressure systolic 2023-10-17 15:30:00 126 mm[Hg] Common Spiri t [facility] blood pressure diastolic 2023-10-17 15:30:00 76 mm[Hg] Common [facility] height 2023-10-10 15:30:00 66 [in_i] Commo n [facility] weight 2023-10-10 15:30:00 194 [lb_av] Comm on [facility] temperature 2023-10-10 15:30:00 98.3 [degF] Com mon [facility] bmi 2023-10-10 15:30:00 31.31 kg/m2 Comm on [facility] blood pressure systolic 2023-10-10 15:30:00 126 mm[Hg] Common Spiri t [facility] blood pressure diastolic 2023-10-10 15:30:00 74 mm[Hg] Common Spiri t [facility] BP Diastolic 2023-10-03 00:00:00 89 mm[Hg] [facility] Height 2023-10-03 00:00:00 66 [in_i] [facility] Body Weight 2023-10-03 00:00:00 192.8 [lb_av] [facility] BP Systolic 2023-10-03 00:00:00 143 mm[Hg] [facility] BMI (Body Mass Index) 2023-10-03 00:00:00 31.1 kg/m2 [facility] height 2023-08-08 09:00:00 66 [in_i] Commo n [facility] weight 2023-08-08 09:00:00 203 [lb_av] Comm on [facility] temperature 2023-08-08 09:00:00 98.2 [degF] Com [facility] bmi 2023-08-08 09:00:00 32.76 kg/m2 Comm on [facility] blood pressure systolic 2023-08-08 09:00:00 124 mm[Hg] Common Spiri t [facility] blood pressure diastolic 2023-08-08 09:00:00 78 mm[Hg] [facility] height 2023-04-25 10:00:00 66 [in_i] Commo n [facility] weight 2023-04-25 10:00:00 203 [lb_av] Comm on [facility] bmi 2023-04-25 10:00:00 32.76 kg/m2 Comm on [facility] blood pressure systolic 2023-04-25 10:00:00 122 mm[Hg] Common [facility] blood pressure diastolic 2023-04-25 10:00:00 74 mm[Hg] Common [facility] height 2023-04-06 08:45:00 66 [in_i] Commo n [facility] weight 2023-04-06 08:45:00 203 [lb_av] Comm on [facility] temperature 2023-04-06 08:45:00 98.3 [degF] Com [facility] bmi 2023-04-06 08:45:00 32.76 kg/m2 Comm on [facility] blood pressure systolic 2023-04-06 08:45:00 122 mm[Hg] Common [facility] blood pressure diastolic 2023-04-06 08:45:00 74 mm[Hg] Common [facility] height 2022-12-20 08:45:00 66 [in_i] Commo n [facility] weight 2022-12-20 08:45:00 207 [lb_av] Comm on [facility] temperature 2022-12-20 08:45:00 98.4 [degF] Com [facility] bmi 2022-12-20 08:45:00 33.41 kg/m2 Comm on [facility] blood pressure systolic 2022-12-20 08:45:00 124 mm[Hg] Common [facility] blood pressure diastolic 2022-12-20 08:45:00 71 mm[Hg] Common [facility] height 2022-12-01 08:15:00 66 [in_i] Commo n [facility] weight 2022-12-01 08:15:00 207 [lb_av] Comm on [facility] temperature 2022-12-01 08:15:00 97.8 [degF] Com [facility] bmi 2022-12-01 08:15:00 33.41 kg/m2 Comm on [facility] blood pressure systolic 2022-12-01 08:15:00 126 mm[Hg] Common Spiri t [facility] blood pressure diastolic 2022-12-01 08:15:00 80 mm[Hg] Common [facility] height 2022-11-21 08:00:00 66 [in_i] Commo n [facility] weight 2022-11-21 08:00:00 207 [lb_av] Comm on [facility] temperature 2022-11-21 08:00:00 98.0 [degF] Com [facility] bmi 2022-11-21 08:00:00 33.41 kg/m2 Comm on [facility] blood pressure systolic 2022-11-21 08:00:00 124 mm[Hg] Common [facility] blood pressure diastolic 2022-11-21 08:00:00 78 mm[Hg] Common [facility] height 2022-10-03 15:00:00 66 [in_i] Commo n [facility] weight 2022-10-03 15:00:00 207 [lb_av] Comm on [facility] temperature 2022-10-03 15:00:00 98.2 [degF] Com [facility] bmi 2022-10-03 15:00:00 33.41 kg/m2 Comm on [facility] blood pressure systolic 2022-10-03 15:00:00 136 mm[Hg] Common [facility] blood pressure diastolic 2022-10-03 15:00:00 84 mm[Hg] Common [facility] height 2022-03-15 10:15:00 66 [in_i] Commo n [facility] weight 2022-03-15 10:15:00 225 [lb_av] Comm on [facility] temperature 2022-03-15 10:15:00 96.3 [degF] Com [facility] bmi 2022-03-15 10:15:00 36.31 kg/m2 Comm on [facility] blood pressure systolic 2022-03-15 10:15:00 135 mm[Hg] Common Spiri t - [facility] blood pressure diastolic 2022-03-15 10:15:00 92 mm[Hg] Common [facility] height 2022-02-15 10:00:00 66 [in_i] Commo n [facility] weight 2022-02-15 10:00:00 225 [lb_av] Comm on [facility] temperature 2022-02-15 10:00:00 97.1 [degF] Com [facility] bmi 2022-02-15 10:00:00 36.31 kg/m2 Comm on [facility] blood pressure systolic 2022-02-15 10:00:00 126 mm[Hg] Common Spiri t [facility] blood pressure diastolic 2022-02-15 10:00:00 78 mm[Hg] Common [facility] height 2021-10-11 15:30:00 66 [in_i] Commo n [facility] weight 2021-10-11 15:30:00 225 [lb_av] Comm on [facility] temperature 2021-10-11 15:30:00 98.0 [degF] Com [facility] bmi 2021-10-11 15:30:00 36.31 kg/m2 Comm on [facility] blood pressure systolic 2021-10-11 15:30:00 118 mm[Hg] Common Spiri t [facility] blood pressure diastolic 2021-10-11 15:30:00 78 mm[Hg] Common [facility] height 2021-10-04 15:30:00 66 [in_i] Commo n [facility] weight 2021-10-04 15:30:00 225 [lb_av] Comm on [facility] temperature 2021-10-04 15:30:00 98.3 [degF] Com [facility] bmi 2021-10-04 15:30:00 36.31 kg/m2 Comm on [facility] blood pressure systolic 2021-10-04 15:30:00 120 mm[Hg] Common [facility] blood pressure diastolic 2021-10-04 15:30:00 80 mm[Hg] Common [facility] height 2021-09-27 09:15:00 66 [in_i] Commo n [facility] weight 2021-09-27 09:15:00 225 [lb_av] Comm on [facility] temperature 2021-09-27 09:15:00 98.2 [degF] Com [facility] bmi 2021-09-27 09:15:00 36.31 kg/m2 Comm on [facility] blood pressure systolic 2021-09-27 09:15:00 114 mm[Hg] Common [facility] blood pressure diastolic 2021-09-27 09:15:00 80 mm[Hg] Common [facility] height 2021-04-13 08:00:00 66 [in_i] Commo n [facility] weight 2021-04-13 08:00:00 214 [lb_av] Comm on [facility] temperature 2021-04-13 08:00:00 97.3 [degF] Com [facility] bmi 2021-04-13 08:00:00 34.54 kg/m2 Comm on [facility] blood pressure systolic 2021-04-13 08:00:00 142 mm[Hg] Common [facility] blood pressure diastolic 2021-04-13 08:00:00 86 mm[Hg] Common [facility] Procedures Procedure Date / Time Performed Performing Clinicia n Source US TRANSVAGINAL 2025-01-09 00:00:00 [facility]AM[facility], screening, digital, bilateral 2024-10-03 00:00:00 [facility] MAMMO, screening, digital, bilateral 2023-10-03 00:00:00 [facility] Operation on Fingernail [facility] En[facility] Start Date/Time End Date/Time Encounter Type Admission Type Attending [facility] Care Facility Care Department Encounter ID Source 2024-04-11 09:15:00 Outpatient [facility] [id number] [facility] 2024-02-15 15:27:01 Outpatient Efrain Juan [facility] [id number] [facility] 2023-12-29 10:53:00 Outpatient STLMLC ST[facility] [id number] [facility] 2023-10-11 15:59:00 Outpatient STLMLC [facility] [id number] [facility] 2023-08-07 08:16:00 Outpatient [facility]LMLC ST[facility] [id number] [facility] 2022-10-04 07:59:00 Outpatient [facility]MLC [facility] [id number] [facility] 2022-03-15 10:32:00 Outpatient [facility]MLC [facility] [id number] [facility] 2022-02-15 08:13:00 Outpatient [facility] [id number] [facility] 2021-09-24 08:28:00 Outpatient [facility] [id number] [facility] 2021-09-06 13:54:01 Outpatient [facility] [id number] [facility] 2021-06-23 14:18:44 Outpatient [facility]C [facility] [id number] [facility] 2021-06-23 14:08:29 Outpatient [facility]C ST[facility]C [id number] [facility] 2021-06-23 12:41:43 Outpatient [facility]C [facility] [id number] [facility] 2021-06-23 12:32:39 Outpatient [facility]C [facility] [id number] [facility] 2021-06-23 12:31:55 Outpatient [facility] [id number] [facility] 2021-06-23 12:26:47 Outpatient [facility]MLC ST[facility]MLC [id number] [facility] 2025-01-16 00:00:00 2025-01-16 00:00:00 NEENA Wang: [address], [address], [place] [address] , Ph. Replaced by [facility] - GC_GCBZ[facility]* [id number] [facility] 2025-01-09 00:00:00 2025-01-09 00:00:00 Michelle Bustillo MD: [address], [address], [place] [phone] , Ph. Replaced by [facility] - [facility]* [id number] [facility] 2025-01-02 08:45:13 2025-01-02 08:45:13 Outpatient [facility] [id number] Jose Dee 2024-12-26 00:00:00 2024-12-26 00:00:00 (TEL) STLMLC STLMLC [id number] [facility] 2024-12-26 00:00:00 2024-12-26 00:00:00 NON-BILLAB LE VISIT STLMLC STLMLC [id number] [facility] 2024-12-11 00:00:00 2024-12-11 00:00:00 (TEL) STLMLC STLMLC [id number] [facility] 2024-12-02 00:00:00 2024-12-02 00:00:00 (TEL) STLMLC STLMLC [id number] [facility] 2024-11-28 00:00:00 2024-11-28 00:00:00 NON-BILLAB LE VISIT STLMLC STLMLC [id number] [facility] 2024-11-25 00:00:00 2024-11-25 00:00:00 (TEL) STLMLC STLMLC [id number] [facility] 2024-11-05 00:00:00 2024-11-05 00:00:00 (TEL) STLMLC STLMLC [id number] [facility] 2024-10-31 00:00:00 2024-10-31 00:00:00 NON-BILLAB LE VISIT STLMLC STLMLC [id number] [facility] 2024-10-31 00:00:00 2024-10-31 00:00:00 Maritza Zarate, 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 Replaced by [facility]* [id number] [facility] 2024-10-29 00:00:00 2024-10-29 00:00:00 (TEL) STLMLC STLMLC [id number] [facility] 2024-10-29 00:00:00 2024-10-29 00:00:00 (TEL) STLMLC STLMLC [id number] [facility] 2024-10-29 00:00:00 2024-10-29 00:00:00 (TEL) STLMLC STLMLC [id number] [facility] 2024-10-22 00:00:00 2024-10-22 00:00:00 (TEL) STLMLC STLMLC [id number] [facility] 2024-10-22 00:00:00 2024-10-22 00:00:00 (PO) Post Op STLMLC STLMLC [id number] [facility] 2024-10-14 00:00:00 2024-10-14 00:00:00 (TEL) STLMLC STLMLC [id number] [facility] 2024-10-09 16:35:49 2024-10-09 16:35:49 Outpatient [facility] [id number] Jose Michele Luiz 2024-10-03 00:00:00 2024-10-03 00:00:00 NEENA Butler: [address], [address], [place] [address] , Ph. Replaced by [facility] - GC_GCBZ[facility]_La jose Kramer* [id number] [facility] 2024-10-01 00:00:00 2024-10-01 00:00:00 (TEL) STLMLC STLMLC [id number] [facility] 2024-10-01 00:00:00 2024-10-01 00:00:00 OFFICE VISIT ESTAB PT LEVEL 3 STLMLC STLMLC [id number] [facility] 2024-09-27 00:00:00 2024-09-27 00:00:00 (TEL) STLMLC STLMLC [id number] [facility] 2024-09-26 00:00:00 2024-09-26 00:00:00 (ESTPT) Establishe d Patient STLMLC STLMLC [id number] [facility] 2024-07-30 09:02:23 2024-07-30 09:02:23 Outpatient [facility] [id number] Jose Michele Luiz 2024-07-30 00:00:00 2024-07-30 00:00:00 OFFICE VISIT ESTAB PT LEVEL 4 STLMLC STLMLC [id number] [facility] 2024-07-30 00:00:00 2024-07-30 00:00:00 (TEL) STLMLC STLMLC [id number] [facility] 2024-06-06 00:00:00 2024-06-06 00:00:00 NEENA Wang: [address], [place] [address] , Ph. Replaced by [facility] - GC_GCBZW_Shanda garcia [place]* [id number] [facility] 2024-05-27 00:00:00 2024-05-27 00:00:00 (IN/ASP) INJ ASP STLMLC STLMLC [id number] [facility] 2024-05-16 00:00:00 2024-05-16 00:00:00 (IN/ASP) INJ ASP STLMLC STLMLC [id number] [facility] 2024-05-09 00:00:00 2024-05-09 00:00:00 (TEL) STLMLC STLMLC [id number] [facility] 2024-05-09 00:00:00 2024-05-09 00:00:00 OFFICE VISIT ESTAB PT LEVEL 4 STLMLC STLMLC [id number] [facility] 2024-03-14 00:00:00 2024-03-14 00:00:00 Office Visit- Est Pt.- Level 3 CLS CLS [id number] [facility] 2024-02-15 00:00:00 2024-02-15 00:00:00 Office Visit- New Pt.- Level 3 CLS CLS [id number] [facility] 2024-02-14 00:00:00 2024-02-14 00:00:00 CHELI Lozada: [address], [place] [address] , Ph. [facility]* [id number] [facility] 2023-10-24 00:00:00 2023-10-24 00:00:00 (IN/ASP) INJ ASP STLMLC STLMLC [id number] [facility] 2023-10-17 00:00:00 2023-10-17 00:00:00 (IN/ASP) INJ ASP STLMLC STLMLC [id number] [facility] 2023-10-10 00:00:00 2023-10-10 00:00:00 OFFICE VISIT ESTAB PT LEVEL 4 STLMLC STLMLC [id number] [facility] 2023-10-03 00:00:00 2023-10-03 00:00:00 CHELI Lozada: [address], [place] [address] , Ph. Replaced by [facility] - [facility]* [id number] [facility] 2023-10-02 00:00:00 2023-10-02 00:00:00 (TEL) STLMLC STLMLC [id number] [facility] 2023-08-08 00:00:00 2023-08-08 00:00:00 OFFICE VISIT ESTAB PT LEVEL 4 STLMLC STLMLC [id number] [facility] 2023-04-25 00:00:00 2023-04-25 00:00:00 (IN/ASP) INJ ASP STLMLC STLMLC [id number] [facility] 2023-04-06 00:00:00 2023-04-06 00:00:00 OFFICE VISIT ESTAB PT LEVEL 4 STLMLC STLMLC [id number] [facility] 2023-02-21 00:00:00 2023-02-21 00:00:00 (TEL) STLMLC STLMLC [id number] [facility] 2022-12-20 00:00:00 2022-12-20 00:00:00 (IN/ASP) INJ ASP STLMLC STLMLC [id number] [facility] 2022-12-01 00:00:00 2022-12-01 00:00:00 (IN/ASP) INJ ASP STLMLC STLMLC [id number] [facility] 2022-11-21 00:00:00 2022-11-21 00:00:00 (IN/ASP) INJ ASP STLMLC STLMLC [id number] [facility] 2022-11-21 00:00:00 2022-11-21 00:00:00 (WEB) STLMLC STLMLC [id number] [facility] 2022-11-21 00:00:00 2022-11-21 00:00:00 (WEB) STLMLC STLMLC [id number] [facility] 2022-10-03 00:00:00 2022-10-03 00:00:00 OFFICE VISIT ESTAB PT LEVEL 4 STLMLC STLMLC [id number] [facility] 2022-10-03 00:00:00 2022-10-03 00:00:00 (TEL) STLMLC STLMLC [id number] [facility] 2022-03-15 00:00:00 2022-03-15 00:00:00 (IN/ASP) INJ ASP STLMLC STLMLC [id number] [facility] 2022-02-15 00:00:00 2022-02-15 00:00:00 OFFICE VISIT ESTAB PT LEVEL 4 STLMLC STLMLC [id number] [facility] 2021-10-11 00:00:00 2021-10-11 00:00:00 (IN/ASP) INJ ASP STLMLC STLMLC [id number] [facility] 2021-10-04 00:00:00 2021-10-04 00:00:00 (IN/ASP) INJ ASP STLMLC STLMLC [id number] [facility] 2021-09-27 00:00:00 2021-09-27 00:00:00 (TEL) STLMLC STLMLC [id number] [facility] 2021-09-27 00:00:00 2021-09-27 00:00:00 (IN/ASP) INJ ASP STLMLC STLMLC [id number] [facility] 2021-09-20 00:00:00 2021-09-20 00:00:00 (TEL) STLMLC STLMLC [id number] [facility] 2021-09-07 00:00:2021-09-07 00:00:00 (TEL) STLMLC STLMLC [id number] [facility] 2021-04-13 00:00:00 2021-04-13 00:00:00 OFFICE VISIT ESTAB PT LEVEL 4 STLMLC STLMLC [id number] [facility] 2020-12-31 00:00:00 2020-12-31 00:00:00 Outpatient [facility]LMLC STLMLC [id number] [facility] 2020-12-22 00:00:00 2020-12-22 00:00:00 Outpatient STLMLC STLMLC [id number] [facility] 2020-11-17 00:00:00 2020-11-17 00:00:00 Outpatient [facility]LMLC STLMLC [id number] [facility] 2020-11-09 00:00:00 2020-11-09 00:00:00 Outpatient STLMLC STLMLC [id number] [facility] 2020-08-24 00:00:00 2020-08-24 00:00:00 Outpatient STLMLC STLMLC [id number] [facility] 2020-08-23 00:00:00 2020-08-23 00:00:00 Outpatient [facility]C STLMLC [id number] [facility] 2020-07-21 00:00:00 2020-07-21 00:00:00 Outpatient ST[facility]MLC STLMLC [id number] [facility] 2020-07-07 00:00:00 2020-07-07 00:00:00 Outpatient STLMLC STLMLC [id number] [facility] 2018-10-02 08:57:00 2018-10-02 08:57:00 [facility] [id number] [facility] 2018-10-02 08:52:00 2018-10-02 08:52:00 [facility] [id number] [facility] 2018-09-26 11:06:00 2018-09-26 11:06:00 [facility] [id number] [facility] 2018-09-20 08:15:00 2018-09-20 08:15:00 [facility] [id number] [facility] 2017-12-14 14:30:00 2017-12-14 14:30:00 [facility] [id number] [facility] 2017-12-14 09:42:00 2017-12-14 09:42:00 Outpatient [facility] [id number] [facility] Results Test Description Test Time Test Comments Results Result Co mments Source [facility] Medicaligp, apt HPV,rfx 16/18,[id number] 00:00:00* Test Item Value Reference Range Interpretation Comme nts diagnosis: (test code = diagnosis:) COMMENT A specimen adequacy: (test cod e = specimen adequacy:) COMMENT performed by: (test code = p erformed by:) COMMENT electronically signed by: (t est code = electronically signed by:) COMMENT pathologist provided ICD10: (test code = pathologist provided ICD10:) COMMENT note: (test code = note:) COMMENT test methodology: (test code = test methodology:) COMMENT HPV aptima (test code = HPV aptima) NEGATIVE negative [facility] Medicalinfectious disease [id number] 00:00:00* Test Item Value Reference Range Interpretation Comme nts atopobium vaginae (test code = atopobium vaginae) 19.210 ppm 19.961-24.689 A bvab 2,3 (bacterial vaginosi s associated bacteria 2, 3); mobiluncus spp (test code = bvab 2,3 (bacterial vaginosis associated bacteria 2, 3); mobiluncus spp) 0.000 ppm 19.961-24.689 edelmira albicans, parapsilos is, tropicalis (test code = edelmira albicans, parapsilosis, tropicalis) 0.000 ppm 19.961-30.770 edelmira glabrata (nakaseomyc es glabratus) (test code = edelmira glabrata (nakaseomyces glabratus)) 0.000 ppm 23.000-32.138 edelmira krusei (pichia kudriavzevii) (test code = edelmira krusei (pichia kudriavzevii)) 0.000 ppm 23.000-32.271 chlamydia trachomatis (test code = chlamydia trachomatis) 0.000 ppm 23.000-31.467 gardnerella vaginalis (test code = gardnerella vaginalis) 25.716 ppm 19.961-24.689 A herpes simplex virus 1 (test code = herpes simplex virus 1) 0.000 ppm 23.000-32.355 herpes simplex virus 2 (test code = herpes simplex virus 2) 0.000 ppm 23.000-31.433 megasphaera (types 1, 2) (te st code = megasphaera (types 1, 2)) 0.000 ppm 19.961-24.689 neisseria gonorrhoeae (test code = neisseria gonorrhoeae) 0.000 ppm 23.000-32.117 trichomonas vaginalis (test code = trichomonas vaginalis) 0.000 ppm 23.000-32.119 ermb, C; mefa (test code = e rmb, C; mefa) 16.823 ppm 23.000-27.611 A tet B, tet M (test code = te t B, tet M) 22.377 ppm 23.000-27.778 A [facility]MRI Shoulder Rt Wo ContMRI Knee Left Wo ContMRI Knee Left Wo Cont
--- NOTE | 2025-01-21 10:28 | EDPHYS ---
Physician Documentation [facility] Name: Velvet Yoo Age: 54 yrs Sex: Female : 1970 Arrival Date: 01/21/2025 Time: 09:10 Bed 13 Private MD: ED Physician Celso Wheeler HPI: 01/21 09:29 This 54 yrs old Female presents to ER via Wheelchair with complaints of weakness. rn 09:29 Patient reports sudden onset left lower extremity weakness and numbness that began rn earlier today, was already up and working out, symptoms were short-lived and resolved completely. States was completely normal when went to work and again sudden onset 9 AM felt left-sided weakness and numbness as well as facial drooping on the left side. Symptoms slowly improving but still feels weakness and numbness in the left leg. No facial droop or speech or vision problem at this time.. 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 - Infectious Disease History:: Denies. - Family history:: not pertinent. - Social history:: Smoking status: Patient/guardian denies using tobacco, the patient reports quitting approximately 20 years ago. - Hospitalizations: : No recent hospitalization is reported. ROS: 09:29 Constitutional: Negative for fever, chills, and weight loss, Neck: Negative for injury, rn pain, and swelling, Cardiovascular: Negative for chest pain, palpitations, and edema, Respiratory: Negative for shortness of breath, cough, wheezing, and pleuritic chest pain, Abdomen/GI: Negative for abdominal pain, nausea, vomiting, diarrhea, and constipation, MS/Extremity: Negative for injury and deformity, Skin: Negative for injury, rash, and discoloration, Neuro: Positive for left leg weakness and numbness Exam: :29 Constitutional: This is a well developed, well nourished patient who is awake, alert, rn and in no acute distress. Head/Face: Normocephalic, atraumatic. Eyes: Pupils equal round and reactive to light, extra-ocular motions intact. Lids and lashes normal. Conjunctiva and sclera are non-icteric and not injected. Cornea within normal limits. Periorbital areas with no swelling, redness, or edema. Cardiovascular: Regular rate and rhythm . No pulse deficits. Neuro: Awake and alert, GCS 15, oriented to person, place, time, and situation. Cranial nerves II-XII grossly intact. Left lower extremity slight drift with decreased sensation to soft touch. Right side normal. No facial droop or weakness noted. No slurred speech. 10:34 ECG was reviewed by the Attending Physician. rn Vital Signs: 09:23 BP 155 / 93; Pulse 94; Resp 17; Pulse Ox 98% ; jl7 10:00 Weight 80.5 kg (M); jl7 10:15 BP 152 / 97; Pulse 89; Resp 18; Pulse Ox 98% on R/A; af3 10:30 BP 144 / 98; Pulse 91; Pulse Ox 98% on R/A; af3 10:45 BP 151 / 123; Pulse 87; Resp 20; Pulse Ox 98% on R/A; af3 11:00 BP 139 / 106; Pulse 96; Resp 18; Pulse Ox 98% on R/A; ph 11:15 BP 152 / 93; Pulse 94; Resp 18; Pulse Ox 99% on R/A; ph 11:30 BP 142 / 89; Pulse 99; Resp 20; Pulse Ox 100% on R/A; ph 11:45 BP 146 / 89; Pulse 96; Resp 18; Pulse Ox 99% on R/A; ph 12:00 BP 166 / 81; Pulse 101; Resp 20; Pulse Ox 100% on R/A; ph NIH Stroke Scale Scores: 09:38 NIHSS Score: 2 rn 09:50 NIHSS Score: 3 af3 09:50 NIHSS Score: 3 af3 MDM: 09:13 Medical Screening Exam initiated rn 09:39 ED course: Patient with NIH 2. Spoke with her regarding TNK administration, she is rn currently thinking about it.. 09:39 Independent interpretation of the following test(s) in the Emergency Department CT rn Scan: My interpretation is CT head images negative for hemorrhage per my interpretation. 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 09:47 Management of patient was discussed with the following: Vascular Physician: Discussed case with rn Dr. Umaña, given sudden onset with resolution and then sudden onset recurrence of symptoms he recommends TNK administration for possible ischemic infarction.. 10:00 ED course: To repeat blood pressures within range to administer TNK. Patient consented rn and agrees with TNKase administration, TNK ordered and administered.. 10:25 Differential diagnosis: CVA, generalized weakness, hypovolemia, idiopathic dizziness, rn near-syncope, TIA. Data reviewed: vital signs, nurses notes, lab test result(s), EKG, radiologic studies, CT scan, and as a result, I will admit patient. Consideration of Admission/Observation Patient was admitted/placed on observation. Escalation of care including admission/observation considered. Discussion of test interpretation with radiology: I had a discussion with radiology regarding a test interpretation. Discussed results with Dr. Deleon, CT head negative for hemorrhage. Care significantly affected by the following chronic conditions: Hypertension. Counseling: I had a detailed discussion with the patient and/or guardian regarding the historical points, exam findings, and any diagnostic results supporting the discharge/admit diagnosis, the presence of at least one elevated blood pressure reading (>120/80) during this emergency department visit, lab results, radiology results, the need for further work-up and treatment in the hospital. ED course: No LVO on CT angiogram head or neck. TNK given within window. Will admit for further workup to hospitalist service.. 13:11 ED course: Repeat CT head negative for acute hemorrhage or complication.. 01/21 09:29 Order name: Basic Metabolic Panel; Complete Time: 10:14 01/21 09:29 Order name: CBC with Diff; Complete Time: 10:05 01/21 09:29 Order name: High Sensitivity Troponin; Complete Time: 10:14 01/21 09:29 Order name: Protime (+inr); Complete Time: 10:01/21 09:29 Order name: Ptt, Activated; Complete Time: 10: 01/21 10:02 Order name: Glucose, Ancillary Testing; Complete Time: 10:05 EDKY 01/21 11:01 Order name: Hemoglobin A1c; Complete Time: 12:23 [facility]KY 01/21 11:01 Order name: Lipid Profile; Complete Time: 12:23 [facility] 01/21 11:11 Order name: Magnesium; Complete Time: 12:23 [facility] 01/21 11:48 Order name: Phosphorus; Complete Time: 12:23 [facility] 01/21 11:48 Order name: Thyroid Stimulating Hormone; Complete Time: 12:23 [facility] 01/21 09:29 Order name: CT Head Angio; Complete Time: 10:14 rn 01/21 09:29 Order name: CT Neck Angio; Complete Time: 10:14 rn 01/21 09:29 Order name: CT Stroke Brain w/o Contrast; Complete Time: 10:05 rn 01/21 09:29 Order name: Stroke CXR 1 View; Complete Time: 10:48 rn 01/21 11:05 Order name: Brain Wo Cont [facility] 01/21 11:05 Order name: Echo with Doppler [facility] 01/21 11:11 Order name: Stroke Protocol [facility] 01/21 12:22 Order name: CT Head Brain wo Cont 01/21 12:54 Order name: CT [facility] 01/21 13:41 Order name: MRI [facility] 01/21 11:03 Order name: CONS Physician Consult [facility] 01/21 09:29 Order name: Accucheck; Complete Time: 10:10 rn 01/21 09:29 Order name: Cardiac monitoring; Complete Time: 10:10 rn 01/21 09:29 Order name: EKG - Nurse/Tech; Complete Time: 10:10 rn 01/21 09:29 Order name: IV Saline Lock; Complete Time: 10:10 rn 01/21 09:29 Order name: Labs collected and sent; Complete Time: 10:10 rn 01/21 09:29 Order name: NPO; Complete Time: 10:10 rn 01/21 09:29 Order name: O2 Per Protocol; Complete Time: 10:10 rn 01/21 09:29 Order name: O2 Sat Monitoring; Complete Time: 10:10 rn 01/21 09:29 Order name: Stroke Swallow Screen; Complete Time: 10:10 rn EC:34 Rate is 87 beats/min. Rhythm is regular. QRS [place] is Normal. NE interval is normal. QRS rn interval is normal. QT interval is normal. No Q waves. T waves are Normal. No ST changes noted. Clinical impression: Normal ECG. Interpreted by me. Reviewed by me. Administered Medications: 10:00 Drug: TNK FOR STROKE - Tenecteplase IV (Administer 10 ml NS flush BEFORE and af3 AFTER tenecteplase) 0.25 mg/kg IV at per protocol once; 0.25mg/kg, MAX DOSE 25 mg, IVP over 5 seconds {Co-Signature: ph (Shayna White RN).} Route: IV; Rate: per protocol; Site: left antecubital; 10:30 Follow up: Response: No adverse reaction; IV Status: Completed infusion af3 12:25 Drug: Magnesium Sulfate IVPB 1 grams IVPB once over 1 hrs Route: IVPB; Infused Over: 1 ph hrs; Site: right forearm; 13:30 Follow up: Response: No adverse reaction; IV Status: Completed infusion ph 13:35 Drug: foLIC Acid IVPB 1 mg IVPB once Route: IVPB; Site: left antecubital; ph 13:40 Follow up: Response: No adverse reaction; IV Status: Completed infusion ph Point of Care Testing: Blood Glucose: 09:45 Blood Glucose: 90 mg/dL; af3 Ranges: Critical Glucose Levels:Adult <50 mg/dl or >400 mg/dl <40 mg/dl or >180 mg/dl Disposition Summary: 01/21/25 10:27 Hospitalization Ordered Notes: Hospitalization Status: Inpatient Admission rn Provider: Darrel Wheeler rn Condition: Stable rn Problem: new rn Symptoms: have improved rn Bed/Room Type: Standard rn Location: Intensive Care Unit(01/21/25 11:23) bd Room Assignment: 2-(01/21/25 12:30) bd Diagnosis - Cerebral infarction, unspecified rn - Weakness rn Forms: - Medication Reconciliation Form rn - SBAR form rn - Leadership Thank You Letter epidemiology internship time excluding procedures: 10:25 Critical care time: Bedside Care: 25 minutes, Consultation: 10 minutes. Total time: 35 rn minutes NIH Stroke Scale - NIH Stroke Score Date: 01/21/2025 Time: 09:38 Total Score = 2 10. Dysarthria (speech clarity - read or repeat words) - 0(Normal) 11. Extinction and Inattention (visual/tactile/auditory/spatial/personal) - 0(No abnormality) 1a. Level of Consciousness (LOC) - 0(Alert) 1b. Level of Consciousness (LOC) (Month \T\ Age) - 0(Both) 1c. LOC Commands (Open \T\ Closes Eyes/Control Panel Operator Crude Unit) - 0(Both) 2. Best Gaze (Lateral Gaze Paresis) - 0(Normal) 3. Visual Field Loss - 0(No visual loss) 4. Facial Palsy - 0(Normal) 5a. Left Arm: Motor (10-second hold) - 0(No drift) 5b. Right Arm: Motor (10-second hold) - 0(No drift) 6a. Left Leg: Motor (5-second hold - always test supine) - 1(Drift) 6b. Right Leg: Motor (5-second hold - always test supine) - 0(No drift) 7. Limb Ataxia (finger/nose \T\ heel/riojas - test with eyes open) - 0(Absent) 8. Sensory Loss (pinprick arms/legs/face) - 1(Mild to moderate loss) 9. Best Language: Aphasia (description/naming/reading) - 0(No aphasia) Initials: tone NIH Stroke Scale - NIH Stroke Score Date: 01/21/2025 Time: 09:50 Total Score = 3 10. Dysarthria (speech clarity - read or repeat words) - 0(Normal) 11. Extinction and Inattention (visual/tactile/auditory/spatial/personal) - 0(No abnormality) 1a. Level of Consciousness (LOC) - 0(Alert) 1b. Level of Consciousness (LOC) (Month \T\ Age) - 0(Both) 1c. LOC Commands (Open \T\ Closes Eyes/Control Panel Operator Crude Unit) - 0(Both) 2. Best Gaze (Lateral Gaze Paresis) - 0(Normal) 3. Visual Field Loss - 1(Partial hemianopia) 4. Facial Palsy - 0(Normal) 5a. Left Arm: Motor (10-second hold) - 0(No drift) 5b. Right Arm: Motor (10-second hold) - 0(No drift) 6a. Left Leg: Motor (5-second hold - always test supine) - 1(Drift) 6b. Right Leg: Motor (5-second hold - always test supine) - 0(No drift) 7. Limb Ataxia (finger/nose \T\ heel/riojas - test with eyes open) - 0(Absent) 8. Sensory Loss (pinprick arms/legs/face) - 1(Mild to moderate loss) 9. Best Language: Aphasia (description/naming/reading) - 0(No aphasia) Initials: af3 NIH Stroke Scale - NIH Stroke Score Date: 01/21/2025 Time: 09:50 Total Score = 3 10. Dysarthria (speech clarity - read or repeat words) - 0(Normal) 11. Extinction and Inattention (visual/tactile/auditory/spatial/personal) - 0(No abnormality) 1a. Level of Consciousness (LOC) - 0(Alert) 1b. Level of Consciousness (LOC) (Month \T\ Age) - 0(Both) 1c. LOC Commands (Open \T\ Closes Eyes/Control Panel Operator Crude Unit) - 0(Both) 2. Best Gaze (Lateral Gaze Paresis) - 0(Normal) 3. Visual Field Loss - 1(Partial hemianopia) 4. Facial Palsy - 0(Normal) 5a. Left Arm: Motor (10-second hold) - 0(No drift) 5b. Right Arm: Motor (10-second hold) - 0(No drift) 6a. Left Leg: Motor (5-second hold - always test supine) - 1(Drift) 6b. Right Leg: Motor (5-second hold - always test supine) - 0(No drift) 7. Limb Ataxia (finger/nose \T\ heel/riojas - test with eyes open) - 0(Absent) 8. Sensory Loss (pinprick arms/legs/face) - 1(Mild to moderate loss) 9. Best Language: Aphasia (description/naming/reading) - 0(No aphasia) Initials: af3 Signatures: Dispatcher [employer] EDRoxanne Hernandez Roman, MD MD rn Hall, Patricia, RN RN ph Dennis Carney RN RN jl7 Natalia Dutta RN RN af3 Shayna White RN ph Corrections: (The following items were deleted from the chart) 09: 09:29 BASIC METABOLIC PANEL+C.LAB.BRZ ordered. EDMS EDMS : 09:29 CBC+H.LAB.BRZ ordered. EDMS EDMS : 09:29 Troponin High Sensitivity+C.LAB.BRZ ordered. EDMS EDMS 09:29 PROTIME (+INR)+COAG.LAB.BRZ ordered. EDMS EDMS 09:29 PTT, ACTIVATED+COAG.LAB.BRZ ordered. EDMS EDMS 09:29 Head Angio+CT.RAD.BRZ ordered. EDMS EDMS 09:29 Neck Angio+CT.RAD.BRZ ordered. EDMS EDMS 09:29 CT-STROKE BRAIN W/O CONTRAST+CT.RAD.BRZ ordered. EDMS EDMS 09:29 Chest Single View+RAD.RAD.BRZ ordered. EDMS EDMS 11:20 10:27 Intensive Care Unit rn bd 11:20 10:27 rn bd 11:23 11:20 Telemetry/MedSurg (Inpatient) bd bd 11:23 11:20 410 bd bd 12:30 11:23 bd bd
--- NOTE | 2025-01-21 10:28 | ER ---
Nurse's Notes [facility] Name: Velvet Yoo Age: 54 yrs Sex: Female : 1970 Arrival Date: 01/21/2025 Time: 09:10 Bed 13 Private MD: Diagnosis: Cerebral infarction, unspecified;Weakness Presentation: 01/21 09:23 Chief complaint: Patient states: 0815 left leg weakness, left eye fluttering, resolved. jl7 0910 left leg weakness then right arm weakness. Numbness to left leg, right arm and left eye resolved. Coronavirus screen: At this time, the client does not indicate any symptoms associated with coronavirus-19. Ebola Screen: No symptoms or risks identified at this time. 09:23 Method Of Arrival: Wheelchair jl7 09:23 Initial Sepsis Screen: Does the patient meet any 2 criteria? No. Patient's initial jl7 sepsis screen is negative. Does the patient have a suspected source of infection? No. Patient's initial sepsis screen is negative. Risk Assessment: Do you want to hurt yourself or someone else? Patient reports no desire to harm self or others. Onset of symptoms was January 21, 2025 at 09:10. 09:23 Acuity: ARGELIA 2 jl7 09:23 An acute neurological deficit is present. The charge nurse has been notified. af3 Pre-hospital glucose is not applicable to this patient. Triage Assessment: 09:58 General: Appears in no apparent distress. uncomfortable, Behavior is calm, cooperative, jl7 appropriate for age. Pain: Denies pain. Neuro: Reports numbness in left eye, right arm and left leg. 10:33 The onset of the patients symptoms was January 21, 2025 at 09:10. 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:58 LMP N/A - Irregular menses, Not jl7 Stroke Activation: Physician: ED Attending; Name: Summer; Notified At: 09:27; Arrived At: 09:27 Physician: Mid-Level Provider; Name: ; Notified At: 09:27; Arrived At: Physician: [not used]; Name: ; Notified At: ; Arrived At: Physician: [not used]; Name: ; Notified At: ; Arrived At: Physician: [not used]; Name: ; Notified At: ; Arrived At: Historical: - Allergies: :58 No Known Allergies; jl7 - Home Meds: :58 Omeprazole Oral [Active]; [place] Thyroid Oral [Active]; - PMHx: 09:58 GERD; - PSHx: 09:58 knee replacement; hand; jl7 - Immunization history:: Adult Immunizations up to date. - Infectious Disease History:: Denies. - Family history:: not pertinent. - Social history:: Smoking status: Patient/guardian denies using tobacco, the patient reports quitting approximately 20 years ago. - Hospitalizations: : No recent hospitalization is reported. Screenin:58 Fries Swallow Protocol Exclusion Criteria: Unable to remain alert for testing: No NPO af3 for medical/surgical reason by provider order No Head-of-bed restricted <30 degrees Tracheostomy tube present No No thin liquids due to preexisting dysphagia/baseline modified diet thickened liquids No Brief Cognitive Screen What is your name? Normal, Where are you right now? Normal, What year is it? Normal. Oral Mechanism Examination Facial Symmetry: Normal, Motion: Normal, Lip Closure: Normal, Oral Mechanism Result: Normal. 3 oz Water Swallow Challenge: Pt able to drink all water without stopping, coughing, choking or throat clearing: Yes Result: MISAEL BONILLA Notified: Celso Wheeler MD. 10:07 [facility] ED Fall Risk Assessment (Adult) History of falling in the last 3 months, ph including since admission No falls in past 3 months (0 pts) Confusion or Disorientation No (0 pts) Intoxicated or Sedated No (0 pts) Impaired Gait No (0 pts) Mobility Assist Device Used No (0 pt) Altered Elimination No (0 pt) Score/Fall Risk Level 0 - 2 = Low Risk Oriented to surroundings, Maintained a safe environment, Hourly rounding (assess needs \\T\\ fall precautionary measures) done. Abuse screen: Denies threats or abuse. Denies injuries from another. Nutritional screening: No deficits noted. Tuberculosis screening: No symptoms or risk factors identified. Assessment: 09:27 Reassessment: code stroke called, to ct with AJ Collins via wheelchair. 09:45 TNKase (Tenecteplase) Screening: Indications: Definite evidence of stroke, ischemic, af3 embolic, or hypertensive: Yes. Treatment will start within 4.5 hours onset of symptoms: Yes. No evidence of intracranial hemorrhage or CT of head and no evidence of peripheral hemorrhage or recent CVA: Yes. Consent for thrombolytic therapy: Yes. 09:50 Reassessment: Dr Wheeler at bedside to speak w/ pt about administering TNK, pt agrees to ph receive the medication. General: Appears in no apparent distress. comfortable, well groomed, Behavior is calm, cooperative, appropriate for age. Pain: Denies pain. Neuro: Level of Consciousness is awake, alert, obeys commands, Oriented to person, place, time, situation, Reports numbness in left leg. Cardiovascular: Capillary refill < 3 seconds in bilateral fingers Patient's skin is warm and dry. Respiratory: Airway is patent Respiratory effort is even, unlabored, Respiratory pattern is regular, symmetrical. Derm: Skin is pink, warm \\T\\ dry. Musculoskeletal: Circulation, motion, and sensation intact. Range of motion: intact in all extremities. 09:50 VAN Scoring: Arm Drift: Patients demonstrates NO arm weakness. Patient is VAN Negative. af3 Visual Disturbance: Field Cut: Abnormal visual alexander noted. Provider notified of +VAN scoring. Aphasia: No aphasia noted. Neglect: No neglect noted. 09:58 Fries Swallow Protocol Exclusion Criteria: Unable to remain alert for testing: No NPO af3 for medical/surgical reason by provider order No Head-of-bed restricted <30 degrees Tracheostomy tube present No No thin liquids due to preexisting dysphagia/baseline modified diet thickened liquids No Brief Cognitive Screen What is your name? Normal, Where are you right now? Normal, What year is it? Normal. Oral Mechanism Examination Facial Symmetry: Normal, Motion: Normal, Lip Closure: Normal, Oral Mechanism Result: Normal. 3 oz Water Swallow Challenge: Pt able to drink all water without stopping, coughing, choking or throat clearing: Yes Result: PASS Notified: Darrel Wheeler MD. 11:20 Reassessment: pt c/o sudden return of symptoms. c/o left leg numbness, weakness, left af3 side of face and generalized weakness. . 11:34 Reassessment: at bedside to see pt. pt reports that symptoms have resolved. af3 Current NIHS 1. 12:15 Reassessment: Pt c/o "feeling strange", reports feeling weak all over, states, " It ph feels like I need to lean to the left side.", appears anxious w/ heart rate and BP elevated. Hospitalist notified, instructed to contact neurologist. 12:20 Reassessment: Spoke to Dr Umaña, verbal order given for 1 gram magnesium IV. ph 12:25 Reassessment: Pt appears calmer w/ VS improving, still reports feeling weak all over. ph 12:29 Reassessment: Pt taken for repeat CT and MRI. ph 12:55 Reassessment: Report given to AJ Yu, will transport pt when she returns from MRI. ph Vital Signs: 09:23 BP 155 / 93; Pulse 94; Resp 17; Pulse Ox 98% ; jl7 10:00 Weight 80.5 kg (M); jl7 10:15 BP 152 / 97; Pulse 89; Resp 18; Pulse Ox 98% on R/A; af3 10:30 BP 144 / 98; Pulse 91; Pulse Ox 98% on R/A; af3 10:45 BP 151 / 123; Pulse 87; Resp 20; Pulse Ox 98% on R/A; af3 11:00 BP 139 / 106; Pulse 96; Resp 18; Pulse Ox 98% on R/A; ph 11:15 BP 152 / 93; Pulse 94; Resp 18; Pulse Ox 99% on R/A; ph 11:30 BP 142 / 89; Pulse 99; Resp 20; Pulse Ox 100% on R/A; ph 11:45 BP 146 / 89; Pulse 96; Resp 18; Pulse Ox 99% on R/A; ph 12:00 BP 166 / 81; Pulse 101; Resp 20; Pulse Ox 100% on R/A; ph NIH Stroke Scale Scores: 09:38 NIHSS Score: 2 rn 09:50 NIHSS Score: 3 af3 09:50 NIHSS Score: 3 af3 ED Course: 09:12 Patient arrived in ED. im 09:13 Celso Wheeler MD is Attending Physician. rn 09:32 Arm band placed on. jl7 09:35 Initial lab(s) drawn, by me, sent to lab. Inserted saline lock: 20 gauge in left jl7 antecubital area, using aseptic technique. Blood collected. Flushed with 10 mL NS. 09:36 CT Stroke Brain w/o Contrast In Process Unspecified. EDMS 09:42 CT Head Angio In Process Unspecified. EDMS 09:42 CT Neck Angio In Process Unspecified. EDMS 09:58 Triage completed. jl7 10:07 Shayna White, RN is Primary Nurse. ph 10:07 EKG done, by ED staff, reviewed by Celso Wheeler MD. Inserted saline lock: 22 gauge in ph right forearm, using aseptic technique. Flushed with 10 mL NS. 10:08 Patient has correct armband on for positive identification. Placed in gown. Bed in low ph position. Call light in reach. lunchroom monitor on. Pulse ox on. NIBP on. Door closed. Noise minimized. Warm blanket given. 10:20 Stroke CXR 1 View In Process Unspecified. EDMS 10:26 Darrel Wheeler MD is Hospitalizing Provider. rn 10:33 No provider procedures requiring assistance completed. Patient admitted, IV remains in af3 place. Administered Medications: 10:00 Drug: TNK FOR STROKE - Tenecteplase IV (Administer 10 ml NS flush BEFORE and af3 AFTER tenecteplase) 0.25 mg/kg IV at per protocol once; 0.25mg/kg, MAX DOSE 25 mg, IVP over 5 seconds {Co-Signature: ph (Shayna White RN).} Route: IV; Rate: per protocol; Site: left antecubital; 10:30 Follow up: Response: No adverse reaction; IV Status: Completed infusion af3 12:25 Drug: Magnesium Sulfate IVPB 1 grams IVPB once over 1 hrs Route: IVPB; Infused Over: 1 ph hrs; Site: right forearm; 13:30 Follow up: Response: No adverse reaction; IV Status: Completed infusion ph 13:35 Drug: foLIC Acid IVPB 1 mg IVPB once Route: IVPB; Site: left antecubital; ph 13:40 Follow up: Response: No adverse reaction; IV Status: Completed infusion ph Medication: 10:00 VIS not applicable for this client. jl7 Point of Care Testing: Blood Glucose: 09:45 Blood Glucose: 90 mg/dL; af3 Ranges: Outcome: 10:27 Decision to Hospitalize by Provider. rn 14:11 Patient left the ED. jb4 NIH Stroke Scale - NIH Stroke Score Date: 01/21/2025 Time: 09:38 Total Score = 2 10. Dysarthria (speech clarity - read or repeat words) - 0(Normal) 11. Extinction and Inattention (visual/tactile/auditory/spatial/personal) - 0(No abnormality) 1a. Level of Consciousness (LOC) - 0(Alert) 1b. Level of Consciousness (LOC) (Month \\T\\ Age) - 0(Both) 1c. LOC Commands (Open \\T\\ Closes Eyes/Bill Cutter) - 0(Both) 2. Best Gaze (Lateral Gaze Paresis) - 0(Normal) 3. Visual Field Loss - 0(No visual loss) 4. Facial Palsy - 0(Normal) 5a. Left Arm: Motor (10-second hold) - 0(No drift) 5b. Right Arm: Motor (10-second hold) - 0(No drift) 6a. Left Leg: Motor (5-second hold - always test supine) - 1(Drift) 6b. Right Leg: Motor (5-second hold - always test supine) - 0(No drift) 7. Limb Ataxia (finger/nose \\T\\ heel/riojas - test with eyes open) - 0(Absent) 8. Sensory Loss (pinprick arms/legs/face) - 1(Mild to moderate loss) 9. Best Language: Aphasia (description/naming/reading) - 0(No aphasia) Initials: rn NIH Stroke Scale - NIH Stroke Score Date: 01/21/2025 Time: 09:50 Total Score = 3 10. Dysarthria (speech clarity - read or repeat words) - 0(Normal) 11. Extinction and Inattention (visual/tactile/auditory/spatial/personal) - 0(No abnormality) 1a. Level of Consciousness (LOC) - 0(Alert) 1b. Level of Consciousness (LOC) (Month \\T\\ Age) - 0(Both) 1c. LOC Commands (Open \\T\\ Closes Eyes/Bill Cutter) - 0(Both) 2. Best Gaze (Lateral Gaze Paresis) - 0(Normal) 3. Visual Field Loss - 1(Partial hemianopia) 4. Facial Palsy - 0(Normal) 5a. Left Arm: Motor (10-second hold) - 0(No drift) 5b. Right Arm: Motor (10-second hold) - 0(No drift) 6a. Left Leg: Motor (5-second hold - always test supine) - 1(Drift) 6b. Right Leg: Motor (5-second hold - always test supine) - 0(No drift) 7. Limb Ataxia (finger/nose \\T\\ heel/riojas - test with eyes open) - 0(Absent) 8. Sensory Loss (pinprick arms/legs/face) - 1(Mild to moderate loss) 9. Best Language: Aphasia (description/naming/reading) - 0(No aphasia) Initials: af3 NIH Stroke Scale - NIH Stroke Score Date: 01/21/2025 Time: 09:50 Total Score = 3 10. Dysarthria (speech clarity - read or repeat words) - 0(Normal) 11. Extinction and Inattention (visual/tactile/auditory/spatial/personal) - 0(No abnormality) 1a. Level of Consciousness (LOC) - 0(Alert) 1b. Level of Consciousness (LOC) (Month \\T\\ Age) - 0(Both) 1c. LOC Commands (Open \\T\\ Closes Eyes/Bill Cutter) - 0(Both) 2. Best Gaze (Lateral Gaze Paresis) - 0(Normal) 3. Visual Field Loss - 1(Partial hemianopia) 4. Facial Palsy - 0(Normal) 5a. Left Arm: Motor (10-second hold) - 0(No drift) 5b. Right Arm: Motor (10-second hold) - 0(No drift) 6a. Left Leg: Motor (5-second hold - always test supine) - 1(Drift) 6b. Right Leg: Motor (5-second hold - always test supine) - 0(No drift) 7. Limb Ataxia (finger/nose \\T\\ heel/riojas - test with eyes open) - 0(Absent) 8. Sensory Loss (pinprick arms/legs/face) - 1(Mild to moderate loss) 9. Best Language: Aphasia (description/naming/reading) - 0(No aphasia) Initials: af3 Signatures: Dispatcher [employer] Celso Paris MD MD rn Hall, Patricia, RN RN ph Luis E Shipley RN RN jb4 Dennis Carney RN RN jl7 Azalea James Ashley, RN RN af3 Shayna White RN ph Corrections: (The following items were deleted from the chart) 17:14 17:13 IV Status: Completed infusion ph ph
--- NOTE | 2025-01-21 10:47 | RAD REPORT ---
EXAMINATION: ONE VIEW CHEST XR CLINICAL INDICATION: Female, 54 years old.,code stroke TECHNIQUE: Frontal chest projection is submitted. Examination is limited by patient positioning and t echnique. COMPARISON: 10/11/2024 FINDINGS: The lungs are well inflated and clear. No pneumothorax or sizable effusion. The heart is normal in s ize. Mediastinal contours are unremarkable. IMPRESSION: No acute intrathoracic abnormalities.
[2025-01-21] MEDS ORDERED: ACETAMINOPHEN 325 MG TABLET PO PRN (10:58)
[2025-01-21] MEDS ORDERED: HYDROCODONE/APAP 5/325 MG TAB PO PRN (10:58)
[2025-01-21] MEDS ORDERED: ONDANSETRON 4 MG/2 ML VIAL IV PRN (11:10)
--- NOTE | 2025-01-21 11:19 | P.HP ---
Certification for Inpatient Patient admitted to: Inpatient With expected LOS: >2 Midnights Practitioner: I am a practitioner with admitting privileges, knowledge of patient current condition, hospital course, and medical plan of care. Services: Services provided to patient in accordance with Admission requirements found in Title 42 Section 412.3 of the Code of Federal Regulations Patient History Date of Service: 01/21/25 Reason for admission: LLE Weakness\Numbness History of Present Illness: Patient is a 54-year-old female with a past medical history significant for hypothyroidism, GERD, irregular menses who presents with complaint of left lower extremity weakness\numbness and right upper extremity weakness onset today. Patient reported that this morning she suddenly started experiencing tingling\numbness on the left lower extremity. Shortly after she started feeling left facial tingling\numbness followed by a streak of dark line across her left eye vision. Patient also reports right upper extremity weakness. Patient reported that she could not bear her weight due to weakness. Patient denies any other signs and symptoms. Symptoms are aggravated or relieved by nothing. Patient was brought to the hospital for medical evaluation. Allergies No Known Drug Allergies Allergy (Verified 10/16/24 10:25) Unknown Home Medications: Adk 20 1 tab PO DAILY 10/11/24 Berberine Chloride [Berberine] 500 mg PO DAILY 10/11/24 Dim + Bioperine 1 tab PO DAILY 10/11/24 Famotidine 20 mg PO DAILY 10/11/24 Glucos Sul 2Kcl/MSM/Chond/C/Mn [Glucosamine Chondroitin Cap] 1 each PO DAILY 10/11/24 L.acidoph,Paracasei, B.lactis [Probiotic] 1 each PO DAILY 10/11/24 Magnesium Carb,Citrate,Oxide [Magnesium Complex] 300 mg PO DAILY 10/11/24 Multivitamin 1 each PO DAILY 10/11/24 Omeprazole [Prilosec] 40 mg PO DAILY 10/11/24 Progesterone, Micronized [Progesterone] 200 mg PO DAILY 10/11/24 Spironolactone 50 mg PO DAILY 10/11/24 Thyroid,Pork [[place] Thyroid] 60 mg PO DAILY 10/11/24 Tirzepatide [Zepbound] 15 mg SQ EVERY 7TH DAY 10/11/24 Valacyclovir [Valtrex*] 500 mg PO DAILY 10/11/24 Vitamin B Complex 1 each PO DAILY 10/11/24 Hydrocodone 7.5/APAP 325 [[place] 7.5/325 mg*] 1 tab PO Q4H PRN tab 10/17/24 - Past Medical/Surgical History -: Hypothyroidism -: GERD -: Irregular menses -: knee replacement -: Hand Surgery - Family History mother -: Heart disease, GI disease, Cancer - Social History Smoking Status: Former smoker Smoking therapy provided: No Patient receptive to therapy: No Alcohol use: No CD- Drugs: No Caffeine use: Yes Place of Residence: Home Review of Systems General: Weakness Eyes: Vision Change ENT: Unremarkable Respiratory: Unremarkable Cardiovascular: Unremarkable Gastrointestinal: Unremarkable Genitourinary: Unremarkable Musculoskeletal: Unremarkable Integumentary: Unremarkable Neurological: Weakness, Numbness, Other (Inability to bear weight ) Physical Examination - Physical Exam General: Alert, In no apparent distress, Oriented x3, Cooperative HEENT: Atraumatic, PERRLA, Mucous membr. moist/pink, EOMI, Sclerae nonicteric Neck: Supple, 2+ carotid pulse no bruit, No LAD, Without JVD or thyroid abn ormality Respiratory: Clear to auscultation bilaterally, Normal air movement Cardiovascular: No edema, Regular rate/rhythm, Normal S1 S2 Capillary refill: <2 Seconds Gastrointestinal: Normal bowel sounds, No tenderness Musculoskeletal: No clubbing, No erythema, No tenderness Integumentary: No rashes, No tenderness/swelling, No erythema Neurological: Normal speech, Normal tone, Normal affect, Abnormal strength Lymphatics: No axilla or inguinal lymphadenopathy - Studies Laboratory Data (last 24 hrs) 01/21/25 01/21/25 01/21/25 09:35 09:35 09:35 WBC 8.40 Hgb 14.5 Hct 42.4 Plt Count 392 PT 11.4 INR 1.01 APTT 28.9 Sodium 137 Potassium 3.8 BUN 13 Creatinine 0.97 Glucose 93 Assessment and Plan - Plan Suspected CVA. --CTA Neck\Head unremarkable for any significant LVO or stenosis. --CT brain indicates Tiny right subinsular focus of hypoattenuation, could relate to a prominent perivascular space or less, likely a small infarct of indeterminate age and No evidence of acute intracranial hemorrhage or mass effect. --MRI brain pending for further evaluation. --Neurology consulted. Recommendations appreciated. --Patient had TNK in the ER. --Will hold off on antiplatelets\anticoagulants. --Echocardiogram pending to assess cardiac structures and functions. --Telemetry to monitor for any significant arrhythmia. --PT\OT eval and treat. --Further management per peanut farmer. GERD\hypothyroidism --Continue home medications. CKD 2. --Baseline functions unknown. --Will continue to monitor renal functions. Dyslipidemia. --Patient placed on statin. Elevated blood pressure without a diagnosis of hypertension. --Will allow permissive hypertension for SBP less than 220 mmHg. --Will continue to monitor blood pressure levels. DVT prophylaxis with SCDs. Discharge Plan: Home Plan to discharge in: Greater than 2 days - Advance Directives Does patient have a Living Will: No Does patient have a Durable POA for Healthcare: No - Code Status/Comfort Care Code Status Assessed: Yes Physician Review: Patient Assessed, Agree with Above Assessment and Plan Critical Care: Yes (At least 45 minutes of care was provided to patient.)
[2025-01-21 11:25] LABS: HDL Cholesterol 57.0 mg/dL (40-60); LDL Cholesterol, Calculated 129.0 mg/dL (<130); LDL Cholesterol,Calc NonReport 129.0
[2025-01-21 11:48] LABS: Magnesium 2.1 mg/dL (1.6-2.4); Thyroid Stimulating Hormone 3.14 uIU/mL (0.358-3.740)
[2025-01-21] MEDS ORDERED: NA CHLORIDE 0.9% 1,000 ML IV SCH (12:00)
[2025-01-21] MEDS ORDERED: MAGNESIUM SULFATE 1 gm IVPB 1 GM/100 ML BAG IV ONE (12:20)
--- NOTE | 2025-01-21 12:53 | RAD REPORT ---
EXAM: CT brain without contrast HISTORY: Left leg weakness. Numbness. COMPARISON: January 21, 2025 TECHNIQUE: Multiple contiguous axial images were obtained and a CT of the brain without contrast.. Sagittal and coronal reconstruction performed. Automated exposure control, adjustment of the mA and/or kV according to patient size, and/or iterative reconstruction. Unless otherwise specified, incidental f indings do not require dedicated imaging follow-up FINDINGS: Contrast from a recent enhanced CT is present within vessels. This makes detection of an intracranial bleed more difficult. No gross intracranial bleed however is seen. Ventricles are normal caliber No extra-axial fluid collection noted Small low-density right subinsular region probably Vitrchow-r Jae space. No fluid within the visualized sinuses or mastoids noted. IMPRESSION: No acute intracranial abnormality noted. If the patient continues to have symptoms to suggest an acute intracranial abnormality then MRI of th e brain would be recommended.
--- NOTE | 2025-01-21 13:40 | RAD REPORT ---
EXAMINATION: Brain Wo Cont CLINICAL INDICATION: Female, 54 years old. R O CVA TECHNIQUE: Multiplanar multisequence MR images of the brain were obtained without intravenous contras t. Unless otherwise specified, incidental findings do not require dedicated imaging follow-up. [id number]. COMPARISON: Same-day head CT FINDINGS: INTRACRANIAL: No acute infarct identified. No significant mass effect or midline shift.No hydrocepha asad. Mild chronic small vessel ischemic changes.Small focus of T2 hyperintensity at the right basal ganglia probably a dilated perivascular space rather than remote lacunar infarct. VASCULATURE: Normal signal voids in the larger intracranial arteries and dural venous sinuses. SINUSES: The paranasal sinuses are predominantly clear.No mastoid effusions. BONE: The marrow signal pattern is within normal limits. IMPRESSION: No acute intracranial abnormality. Specifically, no evidence of acute infarct.
--- NOTE | 2025-01-21 16:50 | RAD REPORT ---
EXAM: CT brain without contrast HISTORY: Left-sided weakness COMPARISON: January 21, 2025 TECHNIQUE: Multiple contiguous axial images were obtained and a CT of the brain without contrast.. Sagittal and coronal reconstruction performed. Automated exposure control, adjustment of the mA and/or kV according to patient size, and/or iterative reconstruction. Unless otherwise specified, incidental f indings do not require dedicated imaging follow-up FINDINGS: An intracranial bleed is not seen Ventricles are normal caliber No extra-axial fluid collection noted No significant hypodensity within the brain No fluid within the visualized sinuses or mastoids noted. IMPRESSION: No acute intracranial abnormality noted. If the patient continues to have symptoms to suggest an acute intracranial abnormality then MRI of th e brain would be recommended.
[2025-01-21] MEDS: LORazepam 2 MG/ML VIAL IV ONE (17:14)
[2025-01-21] MEDS: levETIRAcetam 1,000 MG in NA CHLORIDE 0.9% 100 ML IV ONE (17:59)
[2025-01-21] MEDS: TRAMADOL HCL 50 MG TAB PO PRN (19:33)
[2025-01-21] MEDS: ATORVASTATIN 40 MG TAB PO SCH (21:00)
[2025-01-22 05:51] LABS: Absolute Lymphocytes (CBC) 2.8 K/uL (0.7-4.9); Hematocrit 41.5 % (36.0-45.0); Hemoglobin 14.1 g/dL (12.0-15.0); MCH 30.5 pg (27.0-35.0); MCHC 33.9 g/dL (32.0-36.0); MCV 90.0 fL (80-100); MPV 8.1 fL (7.6-11.3); Nucleated RBC Absolute Count 0.0 (0-0); Nucleated Red Blood Cells % 0.0 % (0-0); RBC Red Blood Cell Count 4.61 M/uL (3.86-4.86); White Blood Count 6.20 thou/uL (4.3-10.9)
[2025-01-22 06:09] LABS: Anion Gap 7.9 mEq/L (5.0-15.0); BUN Blood Urea Nitrogen 11.0 mg/dL (7-18); Glucose Level 90.0 mg/dL (74-106); Potassium 3.9 mEq/L (3.5-5.1)
[2025-01-22 06:50] LABS: Magnesium 2.4 mg/dL (1.6-2.4)
[2025-01-22] MEDS: ATORVASTATIN 10 MG TAB PO ONE (08:32)
[2025-01-22] MEDS: levETIRAcetam 500 MG TAB PO SCH (08:33)
--- NOTE | 2025-01-22 08:53 | P.PN ---
Date of Service: 01/22/25 Subjective: felt better after keppra last night. no episodes overnight. while talking this morning on rounds, she reported the feeling of symptoms coming back described as feeling a pulling to her left side then patient became a bit quiet and started to lean towards left and tammie a bit at hip and elbow on left she was able to speak and move extremities at that time, although slower. she describes it as feeling like shes being pulled towards her left side following commands, Responding to questions appropriately reports intermittent muscle spasms of her extremities Physical Exam: GEN: Alert, oriented, NAD CV: Regular rate and rhythm, no edema Pulm: Nonlabored respirations on room air, clear bilaterally ABD: soft, nontender, nondistended Neuro: Normal speech, normal affect, slightly abnormal heel to riojas on left side Problem List: TIA vs seizure GERD Hypothyroidism Hyperlipidemia on admission, presents with LLE weakness and numbness, RUE weakness, left facial numbness/droop, vision changes, weakness. CT brain initially showed Tiny right subinsular focus of hypoattenuation, could relate to a prominent perivascular space or less likely a small infarct of indeterminate age CTA Head/Neck: Mild multifocal narrowing and luminal irregularity along the MCA branches more so on the left, and the left CHILLER OPERATOR, which could relate to early intracranial atherosclerotic changes versus sequelae of vasculitis MRI brain negative for CVA Given TNK in ED repeat CT head x2 post TNK negative repeat CT head this morning to re-eval IV Keppra switched to PO Echo ordered to eval EF / stenosis Dr. Umaña, Neuro consulted Monitor on telemetry. Neurochecks PT/OT eval EEG ordered symptoms seem more consistent with seizure activity continue keppra, downgrade ICU, monitor overnight VTE:SCD Code: Full Pending repeat CT and echo, EEG. Time Spent Managing Pts Care (In Minutes): 55
[2025-01-22] MEDS: ATORVASTATIN 40 MG TAB PO ONE (08:56)
--- NOTE | 2025-01-22 10:41 | RAD REPORT ---
EXAM: CT Head Brain Wo Cont HISTORY: s/p tnkase 01/21 10am COMPARISON: 01/21/2025 TECHNIQUE: Multiple contiguous axial images were obtained for a CT of the brain without contrast. Sag ittal and coronal reformats were performed. One or more of the following dose reduction techniques were used: Automated exposure control, adjus tment of the mA and kV according to patient size, and iterative reconstruction. Unless otherwise specified, incidental findings do not require dedicated imaging follow-up. FINDINGS: No evidence of hydrocephalus, intracranial hemorrhage, or extra-axial fluid collection. The brain is normal in morphology. The calvarium is intact. The visualized paranasal sinuses and mastoid air cells are essentially clear . IMPRESSION: No evidence of acute intracranial abnormality.
[2025-01-22 18:39] VITALS: BMI 27.7
[2025-01-22] MEDS ORDERED: FAMOTIDINE 20 MG TAB PO PRN (20:18)
[2025-01-22 22:20] VITALS: O2SAT 95
--- NOTE | 2025-01-23 01:15 | CON ---
Reason For Consultation: Consultation called because of possible seizures versus a stroke. History Of Present Illness: Ms. Yoo is a 54-year-old patient with hypothyroidism, gastroesophage al reflux disease, and irregular menses, who admits to drinking at least a shot of mixed alcoholic dr ink daily for at least 20 years. She works at the local [employer] and had symptom onset on in the morning while at work. She noticed sudden-onset weakness, numbness, tingling in a sp reading fashion from the left lower extremity moving proximally to the left upper extremity. Symptom s seemed to fluctuate a bit, but then shortly after she became weak enough that she was unable to nando r weight with the left lower extremity. She also had at some point right-sided arm weakness, facial tingling on the left and some visual disturbance with dark streak of line across the left visual fiel d. She came to [facility] and was started with stroke protocol. She was evaluated and foun d to be within the window for TNKase, therefore, CT scan was done and all contraindications ruled out . She did receive TNKase. However, she said it significantly worsened after TNKase. Given this janelle ure that the seizure, she eventually after MRI of the brain was found to be negative the for any acute ischemic hemorrhagic change, she was given Keppra load of 1 g and the even t seemed to subside significantly and subsequently put on Keppra 500 mg twice daily. She believes th at it did not make any difference in terms of reducing the events, although she still has some mild p ersistent weakness in the left upper and lower extremities, potentially with Kehinde's paralysis. CT angiogram of head and neck shows no significant abnormalities. She had multiple CT scans, a total of 4 of her head and neither of them showed any acute ischemic hemorrhagic change and latest done to day. Blood work showed unremarkable complete blood count with differential. Coagulation panel 1.01. Chemistries unremarkable. Basic metabolic panel unremarkable. TSH 3.14. LDL cholesterol and tota l cholesterol are pending. She is in ICU and then after 24 hours, we will start aspirin 81 mg daily. She is receiving Keppra 50 0 mg daily, Lipitor 40 mg at bedtime. Allergies: NO KNOWN DRUG ALLERGIES. Family History: Noncontributory. Medications: At home, Pepcid 20 mg daily. She takes probiotic 1 daily, magnesium citrate complex 30 0 mg daily, multivitamin daily, Prilosec 40 mg daily, spironolactone 50 mg daily, [place] Thyroid 60 m g daily, Zepbound 15 mg subcutaneous daily 7th day, Valtrex 500 mg daily, vitamin B complex daily. Past Surgical History: She does have knee replacement and hand surgery. Family History: Heart disease, GI disease, cancer in mother. Social History: The patient drinks alcohol regularly. It is noted she used to drink for 20 years. Smoked in the past and may drink caffeinated beverages. Denies intravenous drug use. Review of Systems: Reports the weakness in the left upper extremity is improving. Visual deficits improved and the righ t-sided weakness improved. Otherwise, no fevers, chills, nausea, vomiting, myalgias, arthralgias, or rash. Physical Examination: Vital Signs: Currently, blood pressure 111/61, pulse 78, respiratory rate 16, temperature 97.9, oxyg en saturation 95%. General: Ms. Yoo is resting in the ICU. She is in no acute distress. HEENT: She appears normocephalic and atraumatic. Sclerae anicteric. Oropharynx pink, moist. Neck: Supple. Chest: Clear. Heart: Regular. Extremities: Show no clubbing, cyanosis, edema. Neurologic: She has no focal deficits in terms of cranial nerves. No obvious weakness that was seen in the right upper and lower extremities. Subtle weakness in the left lower extremity, overall weak , but at least 4/5. Sensation intact bilaterally in upper and lower extremities. Coordination intac t. Reflexes symmetric. Assessment And Plan: Ms. Yoo is a 54-year-old patient with potential localization-related comple x partial seizures with a march in terms of her involving the left lower extremity, progre ssing from distal to proximal, and involving perhaps the right side of her arm in a flexed pattern. She has no evidence of a stroke. She did receive TNKase. Head CT scan and the MRI showed no signifi cant abnormalities. Plan is for her to continue Keppra 500 mg twice daily, aspirin 81 mg daily, Lipitor 40 mg at bedtime, and folic acid 1 mg daily along with the comorbid condition medications, including for thyroid contr ol, for fluid management and rehab medicines as noted. She may be discharged in the morning and foll ow up with Dr. Umaña's clinic. She will have a Keppra blood level and may have an ambulatory vide o EEG monitoring for characterization of any potential epileptiform discharge or activities. LEO/LIBRA Voice ID: [id number] Report ID: [id number]
[2025-01-23 05:53] LABS: Absolute Lymphocytes (CBC) 3.2 K/uL (0.7-4.9); Hematocrit 41.5 % (36.0-45.0); Hemoglobin 14.0 g/dL (12.0-15.0); MCH 30.4 pg (27.0-35.0); MCHC 33.7 g/dL (32.0-36.0); MCV 90.3 fL (80-100); MPV 7.7 fL (7.6-11.3); Nucleated RBC Absolute Count 0.0 (0-0); Nucleated Red Blood Cells % 0.0 % (0-0); RBC Red Blood Cell Count 4.60 M/uL (3.86-4.86); White Blood Count 6.90 thou/uL (4.3-10.9)
[2025-01-23 06:07] LABS: Anion Gap 8.9 mEq/L (5.0-15.0); BUN Blood Urea Nitrogen 12.0 mg/dL (7-18); Glucose Level 102.0 mg/dL (74-106); Magnesium 2.2 mg/dL (1.6-2.4); Potassium 3.9 mEq/L (3.5-5.1)
[2025-01-23] MEDS: THYROID 30 MG TAB PO SCH (07:38)
[2025-01-23] MEDS: POTASSIUM CL SA 10 MEQ TAB PO ONE (07:39)
--- NOTE | 2025-01-23 08:05 | EEG ---
CHART: [id number] TEST ID#: [id number] DATE OF STUDY: 01/22/2025 THE EEG WAS RECORDED PORTABLE IN THE ICU ON A 17 CHANNEL MACHINE. ELECTRODES WERE APPLIED IN THE USUAL MANNER USING THE INTERNATIONAL 10-20 SYSTEM. THE WAKING BACKGROUND RHYTHM IN THIS RECORD CONSISTS OF VERY WELL DEVELOPED AND WELL ORGANIZED WAVES OF 10 HZ., MAXIMAL IN THE POSTERIOR HEAD REGIONS WHICH ATTENUATE NORMALLY WITH EYE OPENING. LOW-VOLTAGE 18-22 HZ ACTIVITY IS EXPRESSED IN THE FRONTAL REGIONS. THERE ARE NO FOCAL OR LATERALIZING FEATURES. NO EPILEPTIFORM ACTIVITY APPEARS. SLEEP OCCURRED NATURALLY. IN ADDITION TO NORMAL SLEEP PATTERNS ARE PRESENT. HYPERVENTILATION WAS NOT PERFORMED. PHOTIC STIMULATION PRODUCED FAIR DRIVING BILATERALLY. IMPRESSION: NORMAL EEG FOR THE AGE OF THE PATIENT IN [place], DROWSINESS AND SLEEP.
[2025-01-23 08:08] VITALS: BP 121/72; TEMP 97.9
[2025-01-23] MEDS: MAGNESIUM OXIDE 400 MG TAB PO SCH (08:46)
[2025-01-23] MEDS: LACTOBACILLUS/ACIDOPHILUS TAB PO SCH (08:46)
[2025-01-23] MEDS: ASPIRIN EC 81 MG TAB PO SCH (08:46)
[2025-01-23] MEDS: VALACYCLOVIR 500 MG TAB PO SCH (08:46)
--- NOTE | 2025-01-23 09:04 | P.DS ---
Admission Date: 01/21/25 Discharge Date: 01/23/25 Disposition: ROUTINE DISCHARGE Discharge Condition: GOOD Reason for Admission: LLE Weakness\Numbness Consultations: Neurology - Dr. Umaña Brief History of Present Illness: 54yo F, PMH: hypothyroidism, GERD, irregular menses Patient presents with complaint of left lower extremity weakness\numbness and right upper extremity weakness onset today. Patient reported that this morning she suddenly started experiencing tingling\numbness on the left lower extremity. Shortly after she started feeling left facial tingling\numbness followed by a streak of dark line across her left eye vision. Patient also reports right upper extremity weakness. Patient reported that she could not bear her weight due to weakness. Patient denies any other signs and symptoms. Symptoms are aggravated or relieved by nothing. Patient was brought to the hospital for medical evaluation. Hospital Course: Problem List: TIA vs seizure GERD Hypothyroidism Hyperlipidemia Physician discharge instructions: Patient presented with left lower extremity weakness and numbness, right upper extremity weakness associated with left facial droop, tingling sensation secondary to suspected CVA/TIA. Initial CT brain done on arrival showed a tiny right subinsular focus of hypoattenuation, likely related to a prominent perivascular space. CTA Head and neck noted mild multifocal narrowing and luminal irregularity along the MCA branches more so on the left, and the left [employer] T[employer]OR, which could relate to early intracranial atherosclerotic changes versus sequelae of vasculitis. MRI brain was negative for any acute CVA. Patient was evaluated in the emergency department and she was given TNKase. Repeat CT head x2 showed no acute CVA, and no longer commented on hypoattenuation previously seen. After receiving TNKase, patient reporting having a feeling of pulling to the left, where she would lean towards the left and have some muscle contractions / sensation of muscles tammie. She remained alert and able to speak during these episodes and move her extremities. There was concern for seizure activity. She was loaded and continued on keppra. She felt some improvement with keppra. EEG was performed and normal - no events occurred during EEG. Dr. Umaña, neuro was consulted and recommended patient follow up in the office in the next few weeks for further management. Suspects her symptoms are secondary to localization related complex partial seizures with a July. Given her presentation and receiving tnkase, cannot exclude the possibility of these being post-stroke seizure activity. Patient will be treated for both - with aspirin, statin, folic acid for seizure risk reduction, and empirically started on keppra 500mg twice daily for seizures. Recommend decreasing/eliminating alcohol intake. Patient was feeling better, close to her normal self, and was deemed stable for discharge. Medications: aspirin 81mg atorvastatin 40mg daily folic acid thiamine Keppra 500mg BID Follow up: PCP 3-5 days Neurology in 2-4 weeks Please call to schedule / confirm appointments Physical Exam: GEN: Alert, oriented, NAD CV: Regular rate and rhythm, no edema Pulm: Nonlabored respirations on room air, clear bilaterally ABD: soft, nontender, nondistended Neuro: Normal speech, normal affect Vital Signs/Physical Exam: Temp Pulse Resp BP Pulse Ox 97.9 F 73 15 121/72 97 01/23/25 08:00 01/23/25 08:00 01/23/25 08:00 01/23/25 08:00 01/23/25 08:00 Laboratory Data at Discharge: WBC 6.90 thou/uL (4.3-10.9) 01/23/25 05:32 Hgb 14.0 g/dL (12.0-15.0) 01/23/25 05:32 Hct 41.5 % (36.0-45.0) 01/23/25 05:32 Plt Count 393 thou/uL (152-406) 01/23/25 05:32 PT 11.4 SECONDS (10-13.0) 01/21/25 09:35 INR 1.01 01/21/25 09:35 APTT 28.9 SECONDS (27.2-37.4) 01/21/25 09:35 Sodium 138 mEq/L (136-145) 01/23/25 05:32 Potassium 3.9 mEq/L (3.5-5.1) 01/23/25 05:32 BUN 12 mg/dL (7-18) 01/23/25 05:32 Creatinine 0.81 mg/dL (0.55-1.02) 01/23/25 05:32 Glucose 102 mg/dL (74-106) 01/23/25 05:32 Phosphorus 3.2 mg/dL (2.5-4.9) 01/23/25 05:32 Magnesium 2.2 mg/dL (1.6-2.4) 01/23/25 05:32 Triglycerides 241 mg/dL (<150) H 01/21/25 09:35 Cholesterol 234 mg/dL (<200) H 01/21/25 09:35 HDL Cholesterol 57 mg/dL (40-60) 01/21/25 09:35 Cholesterol/HDL Ratio 4.11 01/21/25 09:35 Home Medications: Adk 20 1 tab PO DAILY 10/11/24 Berberine Chloride [Berberine] 500 mg PO DAILY 10/11/24 Dim + Bioperine 1 tab PO DAILY 10/11/24 Famotidine 20 mg PO DAILY PRN 10/11/24 Glucos Sul 2Kcl/MSM/Chond/C/Mn [Glucosamine Chondroitin Cap] 1 each PO DAILY 10/11/24 L.acidoph,Paracasei, B.lactis [Probiotic] 1 each PO DAILY 10/11/24 Magnesium Carb,Citrate,Oxide [Magnesium Complex] 300 mg PO DAILY 10/11/24 Multivitamin 1 each PO DAILY 10/11/24 Omeprazole [Prilosec] 40 mg PO DAILY 10/11/24 Progesterone, Micronized [Progesterone] 200 mg PO BEDTIME 10/11/24 Spironolactone 50 mg PO BEDTIME 10/11/24 Thyroid,Pork [[place] Thyroid] 60 mg PO DAILY 10/11/24 Tirzepatide [Zepbound] 15 mg SQ EVERY 7TH DAY 10/11/24 Valacyclovir [Valtrex*] 500 mg PO DAILY 10/11/24 Vitamin B Complex 1 each PO DAILY 10/11/24 Acetaminophen [Tylenol] 1,250 mg PO DAILY 01/21/25 Celecoxib [Celebrex] 200 mg PO DAILY 01/21/25 Tramadol HCl [Ultram] 50 mg PO DAILY 01/21/25 Aspirin [Aspirin EC 81 MG] 81 mg PO DAILY 30 Days #30 tab 01/23/25 Atorvastatin Calcium [Lipitor] 40 mg PO BEDTIME 30 Days #30 tab 01/23/25 Folic Acid 1 mg PO DAILY 30 Days #30 tab 01/23/25 Thiamine HCl [Vitamin B-1] 100 mg PO DAILY 30 Days #30 tab 01/23/25 levETIRAcetam [Keppra] 500 mg PO BID 30 Days #60 tab 01/23/25 New Medications: Aspirin [Aspirin EC 81 MG] 81 mg PO DAILY 30 Days #30 tab Folic Acid 1 mg PO DAILY 30 Days #30 tab levETIRAcetam [Keppra] 500 mg PO BID 30 Days #60 tab Atorvastatin Calcium [Lipitor] 40 mg PO BEDTIME 30 Days #30 tab Thiamine HCl [Vitamin B-1] 100 mg PO DAILY 30 Days #30 tab Physician Discharge Instructions: PROBLEM: Rule out Stroke GOAL: Clear understanding of disease process INSTRUCTIONS: follow up with neurology, return to ER if symptoms worsen, take medications as prescribed Diet: Regular Diet Activity: As tolerated, fall precautions, seizure precautions DME DME: Date Ordered: Name of Company: [employer] Services Needed: None Name of Company: Date or Referral: IMMUNIZATION Influenza Vaccine Indicated: Influenza Vaccine Given: Date Given: Pneumonia Vaccine Indicated: No Pneumonia Vaccine Given: Date Given: Physician discharge instructions: Patient presented with left lower extremity weakness and numbness, right upper extremity weakness associated with left facial droop, tingling sensation secondary to suspected CVA/TIA. Initial CT brain done on arrival showed a tiny right subinsular focus of hypoattenuation, likely related to a prominent perivascular space. CTA Head and neck noted mild multifocal narrowing and luminal irregularity along the MCA branches more so on the left, and the left [employer]OR, which could relate to early intracranial atherosclerotic changes versus sequelae of vasculitis. MRI brain was negative for any acute CVA. Patient was evaluated in the emergency department and she was given TNKase. Repeat CT head x2 showed no acute CVA, and no longer commented on hypoattenuation previously seen. After receiving TNKase, patient reporting having a feeling of pulling to the left, where she would lean towards the left and have some muscle contractions / sensation of muscles tammie. She remained alert and able to speak during these episodes and move her extremities. There was concern for seizure activity. She was loaded and continued on keppra. She felt some improvement with keppra. EEG was performed and normal - no events occurred during EEG. Dr. Umaña, neuro was consulted and recommended patient follow up in the office in the next few weeks for further management. Suspects her symptoms are secondary to localization related complex partial seizures with a July. Given her presentation and receiving tnkase, cannot exclude the possibility of these being post-stroke seizure activity. Patient will be treated for both - with aspirin, statin, folic acid for seizure risk reduction, and empirically started on keppra 500mg twice daily for seizures. Recommend decreasing/eliminating alcohol intake. Patient was feeling better, close to her normal self, and was deemed stable for discharge. Medications: aspirin 81mg atorvastatin 40mg daily folic acid thiamine Keppra 500mg BID Follow up: PCP 3-5 days Neurology in 2-4 weeks Please call to schedule / confirm appointments Followup: Santo Umaña MD [ASSOCIATE-ACTIVE - CAN ADMIT] - Juan Zuniga MD [Primary Care Provider] - Time spent managing pt's care (in minutes): 45
== END 2025-01-23 10:13 | disposition home or self-care (01) | DRG 101 ==
LOC: ER 09:10 → ERHOLD 10:59 → 3RD-ICU 13:05
PROVIDERS: ADMIT Hospitalist; ATTEND Hospitalist
DX: G40.209 Localization-related (focal) (partial) symptomatic epilepsy and epileptic syndromes with complex partial seizures, not intractable, without status epilepticus (principal); E03.9 Hypothyroidism, unspecified; N18.2 Chronic kidney disease, stage 2 (mild); E78.5 Hyperlipidemia, unspecified; K21.9 Gastro-esophageal reflux disease without esophagitis; R29.810 Facial weakness; R29.702 NIHSS score 2; R03.0 Elevated blood-pressure reading, without diagnosis of hypertension; Z79.899 Other long term (current) drug therapy; Z87.891 Personal history of nicotine dependence
CPT/HCPCS: 36415; 70450; 70496; 70498; 70551; 71045; 80048; 80061; 82947; 83036; 83735; 84100; 84443; 84484; 85025; 85610; 85730; 92977; 93005; 93306; 95819; 97112; 97116; 97161; 97165; 99285; J1953; J3101; J3475; Q9967